=== PATIENT | female | born 1955 | race Caucasian/White ===

== ENCOUNTER → 2024-01-08 10:43 | Outpatient (REF) | payer MEDICARE, SELFPAY ==
--- NOTE | 2024-01-08 10:51 | CA_ITS ---
Transthoracic Echocardiogram Patient (Last, First, Middle): Brenna Ambriz, Gender: Female Date of : 1955 Age: 68 Procedure Date: 01/08/2024 Procedure Type: Transthoracic Echocardiogram Location: OP Height: 154.94 cm Weight: 74.84 kg BSA: 1.74 m2 Heart Rate: bpm BP: 114 / 68 mmHg Ski Base Trimmer: SUSIE Referring MD: Ramiro Coburn MD Shade Maker: Clint Hi MD Symptoms: HYPERTROPHIC CARDIOMYOPATHY Study Quality: Adequate ECG Rhythm: Sinus Conclusions: - 1. Hyperdynamic LV ejection fraction greater than 70% with severe focal asymmetric hypertrophy of the basal septum with mild obstructive physiology without any dynamic obstruction 2. Mild biatrial enlargement 3. Normal cardiac valvular Dopplers 4. Upper limits of normal RV systolic pressure with mildly elevated right atrial pressures 5. Mildly dilated ascending aorta and arch of the aorta 6. No gross pericardial effusion Findings Left Ventricle Normal left ventricular cavity size. There is mildly increased left ventricular wall thickness. The left ventricular systolic function is hyperdynamic. The visually estimated ejection fraction is >70%. There is no systolic anterior motion of the mitral valve. Spectral Doppler is indicative of an impaired relaxation filling pattern. E/E prime ratio is between 8 and 15 consistent with indeterminate filling pressures. There is severe septal asymmetric hypertrophy. Mild obstructive physiology noted without any dynamic obstruction Right Ventricle Mildly increased right ventricular cavity size. There is normal right ventricular systolic function. Atria The left atrium is mildly dilated. There is lipomatous hypertrophy of the interatrial septum. There is no evidence of interatrial shunt. The right atrium is mildly dilated. Aortic Valve Normal aortic valve structure and function. There is no aortic valve stenosis. There is no aortic valve regurgitation. Mitral Valve Normal mitral valve structure and function. There is trace mitral valve regurgitation. There is no mitral valve stenosis. Pulmonic Valve The pulmonic valve is likely normal. There is trace pulmonic valve regurgitation. Tricuspid Valve Normal tricuspid valve structure. There is mild tricuspid valve regurgitation. Mildly elevated right atrial pressure. There is no evidence of pulmonary hypertension. Great Vessels The pulmonary artery was not well visualized. There is mild dilatation of the ascending aorta measuring 4.30 cm and mild dilatation of the aortic arch measuring 3.80 cm. Venous The inferior vena cava is severely dilated and collapses greater than 50% with inspiration. Pericardium/Pleural There is no evidence of pericardial effusion. Prior Study Comparison No prior study available for comparison. Measurements 2D Linear Measurements IVSd: 1.21 0.6-0.9/0.6-1.0 cm LVIDd: 4.51 3.9-5.3/4.2-5.9 cm LVIDd Index: 2.59 2.4-3.2/2.2-3.1 cm/m2 LVIDs: 2.46 2.0-3.6 cm LVPWd: 1.37 0.7-1.1 cm LA Diam: 3.50 2.7-3.8/3.0-4.0 cm LAIDs Index: 2.01 1.5-2.3 cm/m2 LV Mass: 275.25 67-162/88-224 g LV Mass Index: 158.19 43-95/49-115 g/m2 LVOT Diam: 2.30 3.0+(-)1.3 cm 2D Systolic Function EF 4C: 75.30 >55% EF 2C: 72.90 >55% EF BiP: 72.80 >55% Mitral Valve MV Pk E: 0.92 MV PK A: 0.60 MV Decel Time: 227.00 E/A: 1.50 E'Lateral: 8.92 E'Medial: 5.77 E/E' Med: 16.00 E/E' Lat: 10.30 PHT: 66.00 MVA PHT: 3.33 Decel [place]: 4.06 MR Vol - PW Dopp: 14.64 MR VTI: 1.83 MR ERO: 8.00 MR Alias Forrest: 0.40 MR RAD: 0.40 Aortic Valve AoV Pk Forrest: 2.29 AoV Mn Forrest: 1.75 AoV VTI: 0.52 AoV Pk Grad: 21.00 Aov Mn Grad: 13.00 ZE Cont.VTI: 2.81 LVOT LVOT Pk Forrest: 1.77 LVOT Mn Forrest: 1.13 LVOT VTI: 0.35 LVOT Pk Grad: 13.00 LVOT Mn Grad: 6.00 LVOT Diam: 2.30 LVOT Area: 4.15 Diastolic Function MV Pk E: 0.92 MV Pk A: 0.60 E/A: 1.50 E'Medial: 5.77 E/E' Med: 16.00 E' Laterial: 8.92 E/E' Lat: 10.30 Right Ventricle TAPSE (mm): 25.60 TVS' Forrest: 16.60 Tricuspid Valve TR Pk Forrest: 2.58 TR Pk Grad: 27.00 RA Press: 8.00 RVSP: 35.00 Great Vessels Aorta Sinus of Valsalva: 3.55 2.0-3.[address] [place]: 2.97 1.7-3.4 cm Ao Asc: 4.30 2.1-3.4 cm Ao Arch: 3.80 Updated in Other Vendor System with Status of Final Clint Hi MD electronically signed on 01/08/2024 5:12:40 PM with status of Final
== END ==
LOC: HO.CARD 10:43
PROVIDERS: PCP Family Medicine; Visit Provider Internal Medicine Cardiovascular Disease
DX: I42.2 Other hypertrophic cardiomyopathy (principal); I71.21 Aneurysm of the ascending aorta, without rupture
CPT/HCPCS: 93306

== ENCOUNTER → 2024-01-08 10:51 | Outpatient (BNV) | payer MEDICARE, SELFPAY | PROVIDERS: PCP Family Medicine; Visit Provider Internal Medicine Cardiovascular Disease | DX: I42.2 Other hypertrophic cardiomyopathy (principal); I36.1 Nonrheumatic tricuspid (valve) insufficiency; R93.1 Abnormal findings on diagnostic imaging of heart and coronary circulation | CPT/HCPCS: 93306 ==

== ENCOUNTER 2024-01-16 14:44 | Outpatient (AMB) | payer MEDICARE, SELFPAY ==
--- NOTE | 2024-01-16 14:52 | MHC.PC.OV ---
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 - see comments Intake Note: establish care med refills Is last menstrual period known: No Post menopausal: Yes Patient : No Allergies amlodipine [From [facility]] Allergy (Severe, Verified 01/16/24 14:55) Palpitations amoxicillin Allergy (Intermediate, Verified 01/16/24 14:55) Rash Tobacco use date assessed: 01/16/24 Fall risk assessment: No Falls in past year Last assessed Fall Risk: 01/16/24 Dental Screening Dental Screen Date: 01/16/24 Did you have a dental visit in the last 12 months?: Yes Did you have a dental problem in the last 6 months where you did not have access to dental care?: No Was dental information given to patient?: Patient has dentist HPI 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 ?? Prior PCP:? Dr Parkinson Last office visit/CPE:?1 yr ago Acute issue(s):? AUB ?? PMHx:? Aortic aneurysm - Dr Coburn Instructor Creeler. HTN, HLD, GERD, Stage III CRF - Dr Mcmullen. Bipolar - Olvin Angelo Psych provider. 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 Thyroid nodules SurgHx:?Mole removal x 2. FHx:?Mom: Uterine CA in her 50s. Dad: Thyroid nodules/Goiter. Sister: Lung CA & Goiter. SocHx:? Nonsmoker. EtOH none. No drugs [facility] Social History (Updated 01/16/24 @ 14:59 by Yeimi Greer MA) Housing: Apartment Patient Tobacco Use Status: Never used Tobacco e-Cigarette/Vaping Use: Never Used Use of substances other than those prescribed or required for medical reasons: No Patient : No service: No Current occupational status: retired Cognitive needs: No Hearing needs: No Vision needs: Yes Questionnaire PHQ-9 Over the last 2 weeks, how often have you been bothered by any of the following problems? 1. Little interest or pleasure in doing things: not at all 2. Feeling down, depressed, or hopeless: not at all 3. Trouble falling or staying asleep, or sleeping too much: not at all 4. Feeling tired or having little energy: not at all 5. Poor appetite or overeating: not at all 6. Feeling bad about yourself - or that you are a failure or have let yourself or your family down: not at all 7. Trouble concentrating on things, such as reading the newspaper or watching television: not at all 8. Moving or speaking so slowly that other people could have noticed. Or the opposite - being so fidgety or restless that you have been moving around a lot more than usual: not at all 9. Thoughts that you would be better off or of hurting yourself in some way: not at all Total score: 0 Depression Screening Interpretation: Negative Depression Screening Done: Yes 76197 - PHQ-9 Billing: Yes Source: Developed by Drs. Michael Flores, Daily Muro, Mic Pond and colleagues, with an educational ary from [employer]. Thrive Questionnaire Date Thrive assessed: 01/16/24 I am a: Patient What is your living situation today?: I have a steady place to live Within the past 12 months, did the food you bought not last and you didn't have the money to get more?: Never true Within the past 12 months, did you worry whether your food would run out before you got money to buy more?: Never true Do you have trouble paying for medicines?: No Do you have trouble getting transportation to medical appointments?: No Do you have trouble paying your heating and electricity bill?: No Do you have trouble taking care of your child, family member or friend?: No Do you have trouble with day-to-day activities such as bathing, preparing meals, shopping, managing finances, etc.?: No Are you currently unemployed and looking for a job?: No Are you interested in more education?: No Currently or been in a relationship where the following occur: No concerns reported THRIVE Score: 0 AUDIT C Alcohol Use Questionnaire (AUDIT-C) 1. How often do you have a drink containing alcohol?: Never 3. How often do you have six or more drinks on one occasion?: Never Total Score: 0 Score Reviewed/Action Taken: Yes RODOLFO-7 AMB Questionnaire RODOLFO-7 Date RODOLFO - 7 assessed: 01/16/24 Feeling nervous, anxious, or on edge: 0 = Not at all Not being able to stop or control worryin = Not at all Worrying too much about different things: 0 = Not at all Trouble relaxin = Not at all Being so restless that it is hard to sit still: 0 = Not at all Becoming easily annoyed or irritable: 0 = Not at all Feeling afraid as if something awful might happen: 0 = Not at all Total RODOLFO-7 score (0-4 normal; 5-9 mild; 10-14 moderate; 15-21 severe): 0 Source: Developed by Drs. Michael Flores, Daily Muro, Mic Pond and colleagues, with an educational ary from [employer]. RODOLFO-7 Assessment Billing RODOLFO-7 Assessment Tool: RODOLFO-7 Assessment 70085 Review of Systems Const Denies chills, Denies fatigue, Denies fever(s), Denies headache(s) and Denies weakness ENT Denies dizziness and Denies headache(s) Card Denies chest pain, Denies lightheadedness, Denies dyspnea and Denies other (Palpitations) Resp Denies cough, Denies dyspnea, Denies wheezing and Denies other ( shortness of breath) Musc Denies numbness and Denies tingling Neuro Denies dizziness, Denies headache(s), Denies numbness, Denies tingling, Denies paresthesias and Denies weakness Psych Denies anxiety and Denies depression Endo Denies fatigue Aller/Immun Denies wheezing Physical exam (Primary Care) Vital Signs: Last Vital Signs Temp 98.4 F 01/16/24 15:00 Pulse 51 01/16/24 15:00 Resp 10 L 01/16/24 15:00 BP 100/60 01/16/24 15:00 Pulse Ox 98 01/16/24 15:00 Oxygen Delivery Method Room Air 01/16/24 15:00 BMI result Body Mass Index 32.7 Tobacco/Smoking Status: Tobacco use Status Tobacco use date assessed 01/16/24 01/16/24 14:58 Patient Tobacco Use Status Never used Tobacco 01/16/24 14:59 e-Cigarette/Vaping Use Never Used 01/16/24 15:03 PHQ-9: PHQ-9 Score PHQ-9: Total score 0 01/16/24 15:03 Depression Screening Interpretation: Negative Thrive Assessment: Date of Thrive Assessment Date Thrive assessed 01/16/24 01/16/24 15:03 Currently or been in a relationship where the following occur: No concerns reported Const General: no acute distress and well developed Nutritional Appearance: well nourished Orientation/consciousness: patient oriented x3 HENMT Head: Yes normocephalic and Yes atraumatic Eyes General: appearance normal, both eyes and all related structures Pupils: Equal, round and reactive pupils present EOM: EOMs intact bilaterally Resp Effort & Inspection: normal respiratory effort Auscultation: clear to auscultation bilaterally Cardio Rate: regular rate Rhythm: regular rhythm Heart sounds: S1 normal heart sound present, S2 normal heart sound present, no gallops, Murmur heart sound present (2/6 systolic murmur ) and no rubs Neuro General: patient oriented x3 and gait normal Cranial nerves: Yes Equal, round and reactive pupils present Psych Affect: normal affect Assessment and Plan Assessment & Plan (1) Hypertension: Code(s): I10 - Essential (primary) hypertension Plan: Blood?pressure?is?controlled.??Goal?is?less?than?130/80?for?patient?with?aortic?aneurysm Continue?current?medications (2) History of aortic aneurysm: Code(s): Z86.79 - Personal history of other diseases of the circulatory system Plan: History?of?mild?aortic?aneurysm?with?a?2/6?systolic?murmur?heard?over?aortic?and?mitral?regions. Continue?to?control?blood?pressure Follow-up?with?Cardiology,?; echocardiograms?every?year.??Will?request?'s?notes (3) Hyperlipidemia: Code(s): E78.5 - Hyperlipidemia, unspecified Plan: Patient?is?on?atorvastatin Check?lipid (4) GERD (gastroesophageal reflux disease): Code(s): K21.9 - Gastro-esophageal reflux disease without esophagitis Plan: Patient?is?on?omeprazole?which?controls?her?symptoms Continue?omeprazole (5) Abnormal echocardiogram: Code(s): R93.1 - Abnormal findings on diagnostic imaging of heart and coronary circulation Plan: Follow-up?with?Cardiology?as?recommended She?has?an?aortic?aneurysm?and?is?followed?annually?by?Cardiology?with?an?echocardiogram. (6) CKD (chronic kidney disease): Code(s): N18.9 - Chronic kidney disease, unspecified Plan: Chronic?renal?failure.??Patient?says?she?was?on?lithium?for?many?years?and?cause?stage?III?CRF. Followed?by??Benedict Will?request?note Check?labs (7) Bipolar disorder: Code(s): F31.9 - Bipolar disorder, unspecified Plan: History?of?lithium?but?no?longer?on?this?due?to?chronic?renal?failure She?is?now?on?risperidone Stable Follow-up?with?psych?med?provider?as?recommended (8) Abnormal uterine bleeding (AUB): Code(s): N93.9 - Abnormal uterine and vaginal bleeding, unspecified Plan: Patient?recounts?abnormal?uterine?bleeding She?says?this?was?worked?up?and?was?being?followed?by gynecology, Dr Ferrari?at?[facility]?but?they?no?longer?take?her?insurance. Referred?to [facility]?supervising chef (9) Chronic renal failure: Code(s): N18.9 - Chronic kidney disease, unspecified Plan: Followed?by?Dr Mcmullen. Stage?III?renal?failure?after?chronic?lithium?use?for?bipolar?disorder.??No?longer?on?lithium. 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
[2024-01-16 15:00] VITALS: BP 100/60; PULSE 51; RESP 10; TEMP 36.9; O2SAT 98; BMI 32.7
== END 2024-01-16 15:40 | disposition home or self-care (01) ==
PROVIDERS: PCP Family Medicine; Visit Provider Family Medicine
DX: I12.9 Hypertensive chronic kidney disease with stage 1 through stage 4 chronic kidney disease, or unspecified chronic kidney disease (principal); Z86.79 Personal history of other diseases of the circulatory system; F31.9 Bipolar disorder, unspecified; E78.5 Hyperlipidemia, unspecified; K21.9 Gastro-esophageal reflux disease without esophagitis; R93.1 Abnormal findings on diagnostic imaging of heart and coronary circulation; N18.9 Chronic kidney disease, unspecified; N93.9 Abnormal uterine and vaginal bleeding, unspecified

== ENCOUNTER → 2024-01-16 14:44 | Outpatient (BNVA) | payer MEDICARE, SELFPAY | PROVIDERS: PCP Family Medicine; Visit Provider Family Medicine | DX: I12.9 Hypertensive chronic kidney disease with stage 1 through stage 4 chronic kidney disease, or unspecified chronic kidney disease (principal); N18.9 Chronic kidney disease, unspecified; E78.5 Hyperlipidemia, unspecified; K21.9 Gastro-esophageal reflux disease without esophagitis; R93.1 Abnormal findings on diagnostic imaging of heart and coronary circulation; F31.9 Bipolar disorder, unspecified; N93.9 Abnormal uterine and vaginal bleeding, unspecified | CPT/HCPCS: 96127; 99202 ==

== ENCOUNTER 2024-02-01 07:34 | Outpatient (REF) | payer MEDICARE, SELFPAY ==
[2024-02-05 13:49] LABS: HPV mRNA E6/E7 Not Detected (Not Detected)
== END 2024-02-01 07:35 | disposition home or self-care (01) ==
LOC: HO.LNP 07:34
PROVIDERS: PCP Family Medicine; Visit Provider Obstetrics & Gynecology
DX: N95.0 Postmenopausal bleeding (principal)
CPT/HCPCS: 87624; 88175; 99202

== ENCOUNTER 2024-02-01 07:34 | Outpatient (AMB) | payer MEDICARE, SELFPAY ==
[2024-02-01 07:39] VITALS: BMI 32.5
--- NOTE | 2024-02-01 07:39 | A.OFFVIS_ITS ---
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 [facility] Social History Housing: Apartment Patient Tobacco Use Status: Never used Tobacco e-Cigarette/Vaping Use: Never Used service: No Current occupational status: retired Cognitive needs: No Hearing needs: No Vision needs: Yes Review of Systems Const All systems reviewed & are unremarkable except as noted in HPI and below Physical Exam Vital Signs: BMI result Body Mass Index 32.5 General: Yes no CVA tenderness External Female Exam: normal external appearance and normal appearance of the urethra Speculum Exam - Vagina: normal appearance of the vagina, normal palpation, no lesions and no masses Speculum Exam - Cervix: normal appearance of the cervix, normal palpation, no lesions, no masses and nontender Bimanual exam- vagina & uterus: normal bimanual exam, normal palpation, uterine size normal, normal palpation, uterine shape normal, No Cervical tenderness present and non-tender Bimanual Exam- Adnexa, other: normal adnexae Back/Spine/Pelvis Back: no CVA tenderness Assessment & Plan Assessment & Plan (1) Postmenopausal bleeding: Comment: Recurrent Code(s): N95.0 - Postmenopausal bleeding Category: Medical Plan: Discussed with the patient the differential diagnosis of post menopausal bleeding with normal pelvic exam including but not limited to, endometrial hyperplasia, cancer, polyps and other causes; co testing done, recommended ultrasound; Instructed the patient to schedule an ultrasound with a follow-up appointment/possible EMB or preop for hysteroscopy D&C polypectomy given the recurrent nature of her postmenopausal bleeding in 1-2 weeks. All questions answered, the patient verbalized understanding and agreed with the plan. This note was generated with a voice recognition program. Some errors may have been overlooked during the review of this note. Sometimes these errors may affect the content or meaning of a given sentence. Orders: Orders US pelvic and transvaginal Today N93.9 - Abnormal uterine and vaginal bleeding, unspecified Coding Level of Care Code New Pt Level 3 (98159) Diagnoses Postmenopausal bleeding N95.0
== END 2024-02-01 08:40 | disposition home or self-care (01) ==
PROVIDERS: PCP Family Medicine; Visit Provider Obstetrics & Gynecology
DX: N95.0 Postmenopausal bleeding (principal)
CPT/HCPCS: 99203

== ENCOUNTER 2024-02-02 10:52 | Outpatient (REF) | payer MEDICARE, SELFPAY ==
--- NOTE | ~2024-02-02 | US_ITS ---
EXAMINATION:US PELVIS TRANSABDOMINAL AND TRANSVAGINAL CLINICAL INFORMATION: N93.9 - Abnormal uterine and vaginal bleeding, unspecified COMPARISON: No priors available. LMP: Postmenopausal FINDINGS: UTERUS: The uterus is anteverted. Size: 6.4 x 1.6 x 4.3 cm. Uterine mass: There is no uterine mass. There are echogenic foci likely intramural calcifications measuring up to 3 mm. Questionable significance. Cervix: Grossly unremarkable. Endometrium: No ultrasound evidence of endometrial lesion. endometrial thickness measures 0.3 cm endometrial echogenic foci possibly calcification measuring up to 4 mm. ADNEXA: Normal Right ovary: Normal in size. Left ovary: Normal in size. Doppler exam: Normal Doppler flow identified in both ovaries. FREE FLUID: Trace amount of free fluid. OTHER FINDINGS: None US/US pelvic and transvaginal IMPRESSION: * There are echogenic foci within the endometrium probably calcifications, nonspecific. * The endometrial echogenic 4 mm structure could be calcification versus polyp. 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 * Ovaries unremarkable. (Referring physician staff is being called, by physician staff assistance, to be alerted of the above critical findings and recommendations.) 02/02/2024 3:23 PM CDT * Electronically signed by: Rafia Pedroza MD 02/02/2024 04:23 PM EDT
== END 2024-02-02 10:53 | disposition home or self-care (01) ==
LOC: HO.US 10:52
PROVIDERS: PCP Family Medicine; Visit Provider Obstetrics & Gynecology
DX: N93.9 Abnormal uterine and vaginal bleeding, unspecified (principal)
CPT/HCPCS: 76830; 76856

== ENCOUNTER 2024-02-07 13:21 | Outpatient (AMB) | payer MEDICARE, SELFPAY ==
[2024-02-07 13:54] VITALS: BMI 32.5
--- NOTE | 2024-02-07 13:54 | A.OFFVIS_ITS ---
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] Allergy (Severe, Verified 02/07/24 13:54) Palpitations amoxicillin Allergy (Intermediate, Verified 02/07/24 13:54) Rash Is last menstrual period known: Yes Last menstrual period: 02/20/20 Post menopausal: Yes Patient : No Do you need a note to return to daycare/school/sports/work: Yes (for surgery on monday) HPI Comments Details: Presenting for follow-up. Pelvic ultrasound showed the following: IMPRESSION: * There are echogenic foci within the endometrium probably calcifications, nonspecific. * The endometrial echogenic 4 mm structure could be calcification versus polyp. 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 * Ovaries unremarkable. Co testing in 02/14 was negative [facility] Social History Housing: Apartment Patient Tobacco Use Status: Never used Tobacco e-Cigarette/Vaping Use: Never Used service: No Current occupational status: retired Cognitive needs: No Hearing needs: No Vision needs: Yes Female Reproductive History Menstrual Date of last menstrual period: 02/20/20 Total pregnancies: 2 Full term: 2 Review of Systems Card Reports as per HPI and Reports no additional complaints Resp Reports as per HPI and Reports no additional complaints GI Reports as per HPI and Reports no additional complaints Reports as per HPI Physical Exam Vital Signs: BMI result Body Mass Index 32.5 Const General: cooperative, healthy appearing and comfortable Resp Effort & Inspection: normal respiratory effort Auscultation: clear to auscultation bilaterally Percussion: percussion normal Cardio Palpation: normal PMI Rate: regular rate Rhythm: regular rhythm Heart sounds: no murmurs and no rubs Peripheral pulses: Peripheral pulses 2+ throughout GI Inspection: Yes normal to inspection Palpation (GI): Soft to palpation, nontender, no guarding, not rigid and No hepatosplenomegaly present Percussion: Yes normal to percussion Auscultation: normal bowel sounds Rectal Exam - Female: deferred Assessment & Plan Assessment & Plan (1) Postmenopausal bleeding: Comment: Recurrent Abnormal endometrium by ultrasound Code(s): N95.0 - Postmenopausal bleeding Category: Medical Plan: Discussed with the patient the results the ultrasound showing abnormal endometrium-calcification possible polyp. Recommended hysteroscopy D&C possible polypectomy/myomectomy. Discussed with the patient the procedure , all benefits and risks including but not limited to inability to complete the procedure , insufficient endometrial tissue for a complete evaluation of the endometrial cavity , bleeding, infection, possible need for blood transfusion with all its risk ( HIV,syphilis, Hepatitis, anaphylaxis shock, others..), injury to bladder, rectum, possible need for laparoscopy/laparotomy or hysterectomy. The patient verbalized understanding and signed the consent. Instructions given the patient to stay NPO after midnight the day prior to the procedure and to take only the specific medication (s) discussed the morning of the surgical procedure and to schedule a 2 week postoperative appointment Coding Level of Care Code Est Pt Level 3 (72494) Diagnoses Postmenopausal bleeding N95.0
== END 2024-02-07 14:17 | disposition home or self-care (01) ==
LOC: HO.HWS 13:21
PROVIDERS: PCP Family Medicine; Visit Provider Obstetrics & Gynecology
DX: N95.0 Postmenopausal bleeding (principal)
CPT/HCPCS: 99213

== ENCOUNTER → 2024-02-07 13:21 | Outpatient (BNVA) | payer MEDICARE, SELFPAY | PROVIDERS: PCP Family Medicine; Visit Provider Obstetrics & Gynecology | DX: Z01.818 Encounter for other preprocedural examination (principal); N95.0 Postmenopausal bleeding; Z71.2 Person consulting for explanation of examination or test findings | CPT/HCPCS: 99212 ==

== ENCOUNTER 2024-03-01 08:55 | Day surgery (SDC) | payer MEDICARE, SELFPAY ==
[2024-02-28 15:08] VITALS: BMI 32.5
[2024-02-28 15:48] VITALS: BMI 32.1
--- NOTE | 2024-03-01 10:11 | MHC.SHP ---
Pre-Procedural Eval Section A - 24 Hr Update-Section A only Date of Service: 03/01/24 The patient is an INPATIENT: No Changes since office visit: No Cold of Flu in the past 2 weeks, No New Medical Problems, No Changes in Medication and No Patient answered all questions The patient has been examined within 24 hours of the surgical procedure. The History & Physical has been completed within 30 days and I have reviewed it.: Yes Section B - Complete if H&P > 30 days Chief Complaint: Postmenopausal bleeding Allergies: Allergies Allergy/AdvReac Type Severity Reaction Status Date / Time amlodipine [From [facility]] Allergy Severe Palpitation Verified 03/01/24 10:08 s amoxicillin Allergy Severe Rash Verified 03/01/24 10:08 Plan Diagnosis/Plan: Unchanged I have reviewed the history and physical and performed a pertinent physical examination on my patient. No changes have occurred unless specified. Time Spent With Patient Time: Total time managing care of this patient today ____ minutes.
[2024-03-01 10:25] VITALS: BP 135/69; PULSE 54; RESP 12; TEMP 36.7; O2SAT 97
[2024-03-01] MEDS: Lactated Ringers 1,000 ML 100 ML IVCONT (10:35)
--- NOTE | 2024-03-01 11:00 | P.CONAN_ITS ---
Documented by User: Sonia Dinero NP 02/28/24 14:22 HPI - Anesthesia Eval Consult details Narrative: 68yo F for D&C Hysteroscopy,possible myomectomy,possible polypectomy, HOCM - follows Dr Coburn. William at 01/2024 office visit Case reviewed with Dr King [facility] Active Problems Active Problems: All Active Problems Postmenopausal bleeding (Acute) Chronic renal failure (Acute) Laboratory exam ordered as part of routine general medical examination (Acute) Abnormal uterine bleeding (AUB) (Acute) Bipolar disorder (Acute) CKD (chronic kidney disease) (Acute) Abnormal echocardiogram (Acute) History of aortic aneurysm (Acute) GERD (gastroesophageal reflux disease) (Acute) Hyperlipidemia (Acute) Hypertension (Acute) Past Medical History Medical History Anxiety Hiatal hernia TREE (obstructive sleep apnea) HOCM (hypertrophic obstructive cardiomyopathy) Bipolar disorder CKD (chronic kidney disease) History of aortic aneurysm GERD (gastroesophageal reflux disease) Hyperlipidemia Hypertension Surgical History Surgical History Hx of colonoscopy History of dental surgery Hx of melanoma excision (~1970) Social History Social History Housing: Apartment Are you a primary geriatric care manager to a significant other at home: No Do you presently have visiting nurse or other home services: No Comment: aware of trip hazard Patient Tobacco Use Status: Never used Tobacco e-Cigarette/Vaping Use: Never Used Use of substances other than those prescribed or required for medical reasons: No Have you been hit, kicked, punched, or otherwise hurt by someone within the past year? If so, by whom?: No Are you DNR?: No Advance Directives: No (will bring dos) Advance Directives Information Provided: Yes Advance Directives on File: No Recently lost weight without trying: No Nutrition Risks: No Nutritional Risk Poor oral hygiene: No service: No Current occupational status: retired Cognitive needs: No Hearing needs: No Vision needs: Yes Meds Allergies Allergy/AdvReac Type Severity Reaction Status Date / Time amlodipine [From Norvasc] Allergy Severe Palpitation Verified 03/01/24 10:08 s amoxicillin Allergy Severe Rash Verified 03/01/24 10:08 Home Medications ?Medication ?Instructions ?Recorded ?Confirmed ?Last Taken ?Type amiloride 5 mg tablet 5 mg PO BID 01/16/24 02/28/24 Unknown History atorvastatin 40 mg tablet 40 mg PO DAILY 01/16/24 02/28/24 Unknown History lisinopril 10 mg tablet 10 mg PO DAILY 01/16/24 02/28/24 Unknown History metoprolol succinate 25 mg 25 mg PO DAILY 01/16/24 03/01/24 03/01/24 History tablet,extended release 24 hr risperidone 3 mg tablet 3 mg PO BID 01/16/24 02/28/24 03/01/24 History aspirin 81 mg tablet,delayed 81 mg PO DAILY 02/28/24 02/28/24 Unknown History release calcium carbonate (Calcium 600) 600 mg PO DAILY 02/28/24 02/28/24 Unknown History cholecalciferol (vitamin D3) 10 20 mcg PO DAILY 02/28/24 02/28/24 Unknown History mcg (400 unit) tablet (Vitamin D3) [id number] 8 mg-folic 400 1 tab PO DAILY 02/28/24 02/28/24 Unknown History mcg-K 50 mcg-lutein 300 mcg tablet (Centrum Silver Women) Exam Narrative Narrative: EKG 01/2024 SB @ 58 with PACs No change from previous ECHO 12/2023 Conclusions: - 1. Hyperdynamic LV ejection fraction greater than 70% with severe focal asymmetric hypertrophy of the basal septum with mild obstructive physiology without any dynamic obstruction 2. Mild biatrial enlargement 3. Normal cardiac valvular Dopplers 4. Upper limits of normal RV systolic pressure with mildly elevated right atrial pressures 5. Mildly dilated ascending aorta and arch of the aorta 6. No gross pericardial effusion Assessment and Plan Assessment Anesthesia Assessment: Chart Reviewed Documented by User: Shanel Morales DO 03/01/24 11:01 [facility] Past Medical History Medical History Anxiety Hiatal hernia TREE (obstructive sleep apnea) HOCM (hypertrophic obstructive cardiomyopathy) Bipolar disorder CKD (chronic kidney disease) History of aortic aneurysm GERD (gastroesophageal reflux disease) Hyperlipidemia Hypertension Family History Family history of problems with anesthesia: No Surgical History Surgical History Hx of colonoscopy History of dental surgery Hx of melanoma excision (~1970) History of Problems with Anesthesia: No Social History Social History Housing: Apartment Are you a primary geriatric care manager to a significant other at home: No Do you presently have visiting nurse or other home services: No Comment: aware of trip hazard Patient Tobacco Use Status: Never used Tobacco e-Cigarette/Vaping Use: Never Used Use of substances other than those prescribed or required for medical reasons: No Have you been hit, kicked, punched, or otherwise hurt by someone within the past year? If so, by whom?: No Are you DNR?: No Advance Directives: No (will bring dos) Advance Directives Information Provided: Yes Advance Directives on File: No Recently lost weight without trying: No Nutrition Risks: No Nutritional Risk Poor oral hygiene: No service: No Current occupational status: retired Cognitive needs: No Hearing needs: No Vision needs: Yes Meds Allergies Allergy/AdvReac Type Severity Reaction Status Date / Time amlodipine [From [facility]] Allergy Severe Palpitation Verified 03/01/24 10:08 s amoxicillin Allergy Severe Rash Verified 03/01/24 10:08 Home Medications ?Medication ?Instructions ?Recorded ?Confirmed ?Last Taken ?Type amiloride 5 mg tablet 5 mg PO BID 01/16/24 02/28/24 Unknown History atorvastatin 40 mg tablet 40 mg PO DAILY 01/16/24 02/28/24 Unknown History lisinopril 10 mg tablet 10 mg PO DAILY 01/16/24 02/28/24 Unknown History metoprolol succinate 25 mg 25 mg PO DAILY 01/16/24 03/01/24 03/01/24 History tablet,extended release 24 hr risperidone 3 mg tablet 3 mg PO BID 01/16/24 02/28/24 03/01/24 History aspirin 81 mg tablet,delayed 81 mg PO DAILY 02/28/24 02/28/24 Unknown History release calcium carbonate (Calcium 600) 600 mg PO DAILY 02/28/24 02/28/24 Unknown History cholecalciferol (vitamin D3) 10 20 mcg PO DAILY 02/28/24 02/28/24 Unknown History mcg (400 unit) tablet (Vitamin D3) gastyhug-mgvz-qpra 8 mg-folic 400 1 tab PO DAILY 02/28/24 02/28/24 Unknown History mcg-K 50 mcg-lutein 300 mcg tablet (Centrum Silver Women) Exam Exam Date and Time: 03/01/24 1059 Height,Weight and Vital Signs: Height 5 ft 1 in Weight 77.111 kg Vital Signs Temperature 98.0 F 03/01/24 10:25 Pulse Rate 54 03/01/24 10:25 Respiratory Rate 12 03/01/24 10:25 Blood Pressure 135/69 03/01/24 10:25 Pulse Oximetry 97 03/01/24 10:25 Oxygen Delivery Method Room Air 03/01/24 10:25 Temperature 98.0 F 03/01/24 10:25 Pulse Rate 54 03/01/24 10:25 Respiratory Rate 12 03/01/24 10:25 Blood Pressure 135/69 03/01/24 10:25 Pulse Oximetry 97 03/01/24 10:25 Oxygen Delivery Method Room Air 03/01/24 10:25 Airway Mallampati Class: II TM Dist: >3cm Neck ROM: Full Loose/Missing/Broken Teeth: No (patient denies any loose or broken teeth) Heart: S1S2 Lungs: CTAB Assessment and Plan Assessment Anesthesia Assessment: Anesthesia Plan Discussed and Chart Reviewed Final Anesthetic Review Family History of Problems with Anesthesia: No History of Problems with Anesthesia: No NPO: Yes ASA Class: III Final Preanesthetic Review: No Changes in Pt Med Stat, Meds/Allgs Chart Reviewed, Consent Obtained/Reviewed and Anes Risks/Benef Reviewed Patient Risk: Intermediate Procedure Risk: Low Anesthetic Plan Anesthetic Plan: GA and Agree w/ Assess. and Plan Disposition: Standard PACU
[2024-03-01 12:23] VITALS: BP 112/63; PULSE 60; RESP 18; TEMP 36.2; O2SAT 97
[2024-03-01 12:28] VITALS: BP 119/56; PULSE 66; RESP 17; O2SAT 97
--- NOTE | 2024-03-01 12:29 | P.BOP_ITS ---
Brief Operative Note Date of Service: 03/01/24 Pre-op diagnosis: Recurrent postmenopausal bleed Post-op diagnosis: same (Normal endometrial cavity) Procedure: Hysteroscopy D&C Surgeon: Joseph Barrera MD Anesthesia: GLMA Was an Conveyor Attendant used for this Procedure?: No Estimated blood loss (mL): 0 Pathology: other (Endometrial Scrapping.) Condition: stable Disposition: PACU
--- NOTE | 2024-03-01 12:29 | W.PM.OPN ---
Operative Note Operative Note Date of Service: 03/01/24 Narrative: Preop Diagnosis: Recurrent Post Menopausal bleeding Operation: Diagnostic Hysteroscopy, Dilataion & Curettage Post Op Diagnosis: Normal endometrial cavity QBL: Minimal Anesthesia: GLMA Surgeon: Joseph Barrera MD Salesperson Children'S Shoes: None Complication: None Pathology: Endometrial Scrapings Procedure: The patient was put in the dorsal lithotomy position, scrubbed, and draped in the usual manner. A sterile speculum was inserted in the patient's vagina. The anterior lip of the cervix was grasped with a single tooth tenaculum. The cervix was dilated up to 5 mm, then the scope was inserted in the patient's uterus. Inspection revealed Normal endometrial cavity. The Myosure Reach device was used; the scope was removed from the endometrial cavity , sharp curettings was carried on with minimal to moderate amount of tissues retrieved. At the end of the procedure, all instruments were taken out of the patient uterine and vaginal cavity. The single tooth tenaculum was removed and homeostasis was assured using pressure,. The patient tolerated the procedure well and was transferred to the PACU in a stable condition.
[2024-03-01 12:33] VITALS: BP 128/57; PULSE 59; RESP 17; O2SAT 99
[2024-03-01 12:38] VITALS: BP 135/69; PULSE 58; RESP 17; O2SAT 99
[2024-03-01 12:51] VITALS: BP 123/63; PULSE 54; RESP 17; TEMP 36.9; O2SAT 98
== END 2024-03-01 13:20 | disposition home or self-care (01) ==
PROVIDERS: PCP Family Medicine; Visit Provider Obstetrics & Gynecology
PROC: 0UDB8ZZ Extraction of Endometrium, Via Natural or Artificial Opening Endoscopic (ICD-10-PCS; CPT 58558; principal; 2024-03-01 11:30)
DX: N95.0 Postmenopausal bleeding (principal); I12.9 Hypertensive chronic kidney disease with stage 1 through stage 4 chronic kidney disease, or unspecified chronic kidney disease; N18.9 Chronic kidney disease, unspecified; I42.1 Obstructive hypertrophic cardiomyopathy; E78.5 Hyperlipidemia, unspecified; G47.33 Obstructive sleep apnea (adult) (pediatric); F31.9 Bipolar disorder, unspecified; Z79.82 Long term (current) use of aspirin; Z79.899 Other long term (current) drug therapy; Z88.1 Allergy status to other antibiotic agents; Z88.8 Allergy status to other drugs, medicaments and biological substances
CPT/HCPCS: 58558; 88305; J0461; J1885; J2003; J2405; J2704; J3010

== ENCOUNTER → 2024-03-01 08:55 | Outpatient (BNV) | payer MEDICARE, SELFPAY | PROVIDERS: PCP Family Medicine; Visit Provider Obstetrics & Gynecology | DX: N95.0 Postmenopausal bleeding (principal) | CPT/HCPCS: 58558 ==

== ENCOUNTER 2024-03-14 09:04 | Outpatient (AMB) | payer MEDICARE, SELFPAY ==
--- NOTE | 2024-03-14 09:08 | A.OFFVIS_ITS ---
Vital Signs 03/14/24 09:11 Height 5 ft 1 in Weight 171 lb BMI 32.3 BP 130/70 Intake Visit Reasons: post op Certified Executive Chef: Certified Executive Chef Present (Gabby) Accompanied by: Self / Same As Patient Allergies amlodipine [From Norvasc] Allergy (Severe, Verified 03/14/24 09:10) Palpitations amoxicillin Allergy (Severe, Verified 03/14/24 09:10) Rash HPI Comments Details: The patient is presenting post hysteroscopy D&C no complaints minimal vaginal bleeding no feverishness chills or abdominal pain. The pathology showed the following: Endometrium, curettage: Scant benign atrophic endometrium and scant benign endocervical glandular epithelium; no atypia or carcinoma PFSH Medical History Anxiety Hiatal hernia TREE (obstructive sleep apnea) HOCM (hypertrophic obstructive cardiomyopathy) Bipolar disorder CKD (chronic kidney disease) History of aortic aneurysm GERD (gastroesophageal reflux disease) Hyperlipidemia Hypertension Surgical History Hx of colonoscopy History of dental surgery Hx of melanoma excision (~1970) Social History Housing: Apartment Are you a primary child care centre manager to a significant other at home: No Do you presently have visiting nurse or other home services: No Comment: aware of trip hazard Patient Tobacco Use Status: Never used Tobacco e-Cigarette/Vaping Use: Never Used service: No Current occupational status: retired Cognitive needs: No Hearing needs: No Vision needs: Yes Review of Systems Const All systems reviewed & are unremarkable except as noted in HPI and below Reports as per HPI and Reports no additional complaints GI Reports no additional complaints Reports no additional complaints Physical Exam Vital Signs: Last Vital Signs BP 130/70 03/14/24 09:11 Assessment & Plan Assessment & Plan (1) Postmenopausal bleeding: Code(s): N95.0 - Postmenopausal bleeding Category: Medical Plan: Discussed with the patient the results of the endometrial . Discussed with the patient the sensitivity, specificity, positive and negative predictive value, of endometrial biopsy in detecting endometrial pathology including but not limited to endometrial hyperplasia, cancer and other pathology; instructed the patient to call in case vaginal bleeding bleeding recurs, the next step will be to proceed with further endometrial sampling evaluation to rule out endometrial pathology. All questions answered and the patient verbalized understanding and agreed with the plan. Coding Level of Care Code Est Pt Level 3 (51044) Diagnoses Postmenopausal bleeding N95.0
[2024-03-14 09:11] VITALS: BP 130/70; BMI 32.3
== END 2024-03-14 09:35 | disposition home or self-care (01) ==
LOC: HO.HWS 09:04
PROVIDERS: PCP Family Medicine; Visit Provider Obstetrics & Gynecology
DX: N95.0 Postmenopausal bleeding (principal)
CPT/HCPCS: 99213

== ENCOUNTER → 2024-03-14 09:04 | Outpatient (BNVA) | payer MEDICARE, SELFPAY | PROVIDERS: PCP Family Medicine; Visit Provider Obstetrics & Gynecology | DX: N95.0 Postmenopausal bleeding (principal) | CPT/HCPCS: 99212 ==

== ENCOUNTER 2024-04-18 09:33 | Outpatient (REF) | payer MEDICARE, SELFPAY | END 2024-04-18 09:34 | disposition home or self-care (01) | LOC: HO.MAMMO 09:33 | PROVIDERS: PCP Family Medicine; Visit Provider Family Medicine | DX: Z12.31 Encounter for screening mammogram for malignant neoplasm of breast (principal) | CPT/HCPCS: 77063; 77067 ==

== ENCOUNTER → 2024-04-18 10:15 | Outpatient (BNV) | payer MEDICARE, SELFPAY | PROVIDERS: PCP Family Medicine; Visit Provider Internal Medicine | DX: Z12.31 Encounter for screening mammogram for malignant neoplasm of breast (principal) | CPT/HCPCS: 77063; 77067 ==

== ENCOUNTER 2024-09-02 10:17 | Outpatient (REF) | payer MEDICARE, SELFPAY ==
--- OUTSIDE RECORDS SUMMARY | 2024-09-02 10:46 | XMS_ITS | Clinical Summary ---
Author Organization [facility], Address [address] [address] [place] [address] Phone Care Team Providers Care Grain Wafer Machine Operator Name Role Phone Stephen Rowley MD Primary Care Provider [phone] Allergies Active Allergy Reactions Criticality Noted Date Comments Amlodipine 07/10/2018 Pt reports fast heart rate Amoxicillin Other (see comments) 09/10/2010 Medications omeprazole (PriLOSEC) [address] capsule Take 40 mg by mouth 09/09/2016 Active Aspirin Buf,CaCarb-MgCar b-MgO, 81 MG tablet Take 81 mg by mouth Active atorvastatin (LIPITOR) 40 MG tablet Take 1 tablet by mouth 1 (one) time each day 12/11/2017 Active lisinopril 10 MG tablet TAKE 1 TABLET BY MOUTH 1 TIME EACH DAY. 90 tablet 3 10/17/2023 Active metoprolol succinate XL (TOPROL XL) 25 MG 24 hr tablet TAKE 1 TABLET (25 MG TOTAL) BY MOUTH DAILY DO NOT CRUSH OR CHEW 90 tablet 3 01/11/2024 Active aMILoride (MIDAMOR) 5 MG tabletIndication s:Acute kidney injury due to hypovolemia (HCC),Stage 3a chronic kidney disease (HCC),Toxic nephropathy,Hype rtensive disorder Take 2 tablets (10 mg total) by mouth 1 (one) time each day 180 tablet 3 06/07/2024 06/07/19 26 Active Active Problems Problem Noted Date Diagnosed Date Acute kidney injury due to hypovolemia 3 Stage 3a chronic kidney disease 01/26/2022 Thoracic aortic aneurysm without rupture 022 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 Hypertensive heart and chron ic kidney disease without heart failure, with stage 1 through stage 4 chronic kidney disease, or unspecified chronic kidney disease 01/24/2020 Hyperlipidemia 01/23/2020 Hypernatremia 01/23/2020 Hyperosmolality and or hypernatremia 01/23/2020 Microscopic hematuria 10/14/2016 Hypertensive disorder 04/09/2015 Resolved Problems Problem Noted Date Diagnosed Date Resolved Date Chronic kidney disease due to hypertension 01/23/2020 06/07/2023 Overview (01/23/2020): dr Tim, [place] nephropathy 01/23/2020 12/06/19 24 Encounters Date Type Department Care Team Description 06/07/2024 2:00 PM EST Office Visit [facility], [address] [place] [id number] Lavelle Mcmullen DO Acute kidney injury due to hypovolemia (HCC) (Primary Dx); Stage 3a chronic kidney disease (HCC); Toxic nephropathy; Hypertensive disorder from Last 3 Months Immunizations Immunization Administration Dates Next Due Tdap 09/13/2021,10/25/2007 Family History Relation Status Comments Father Mother Social History Tobacco Use Types Packs/Day Years Used Date Smoking Tobacco: Never Alcohol Use Standard Drinks/Week Comments No 0 (1 standard drink = 0.6 oz pur e alcohol) Comments Unknown Sex and Gender Information Value Date Recorded Sex Assigned at Not on file Legal Sex Female 4:34 PM EST Gender Identity Not on file Sexual Orientation Not on file Last Filed Vital Signs Vital Sign Reading Time Taken Comments Blood Pressure 108/68 06/07/2024 2:15 PM EST Pulse 74 06/07/2024 2:15 PM EST Temperature - - Respiratory Rate - - Oxygen Saturation - - Inhaled Oxygen Concentration - - Weight 57.2 kg (126 lb) 02/07/2019 12:00 PM EDT Height 154.9 cm (5' 1 ) 02/07/2019 12:00 PM EDT Body Mass Index 23.81 02/07/2019 12:00 PM EDT Plan of Treatment Upcoming Encounters Date Type Department Care Team (Late st Contact Info) Description 12/05/2024 2:30 PM EDT Office Visit [facility], [address] [place] [phone] Lavelle Mcmullen DO [address] [place] [address] Health Maintenance Due Date Last Done Comments Breast Cancer Screening 1955 Pneumococcal Vaccine: 50+ Ye ars (1 of 2 - PCV) 1972 Colorectal Cancer Screening: Annual FOBT 2002 Colorectal Cancer Screening: Colonoscopy 2002 Colorectal Cancer Screening: Sigmoidoscopy 2002 Influenza Vaccine (Season Ended) 2024 Hepatitis B Vaccine Aged Out No longe r eligible based on patient's age to complete this topic Insurance [facility] Medicare Care Teams Grain Wafer Machine Operator Relationship Specialty Start Date End Date Stephen Rowley MD PCP - General Internal Medicine 09/26/22
--- OUTSIDE RECORDS SUMMARY | 2024-09-02 10:46 | XMS_ITS | Encounter Summary ---
Author Organization [facility] Address [address] [place] [address] Phone Care Team Providers Care Title Abstractor Name Role Phone Stephen Rowley MD Primary Care Provider [phone] Encounter Details Date Type Department Care Team (Late Contact Info) Description 01/11/2023 Documentation Only [facility] [address] [place] [address] Lavelle Mcmullen DO [address] [facility] [address] [place] [address] Social History Tobacco Use Types Packs/Day Years Used Date Smoking Tobacco: Never Alcohol Use Standard Drinks/Week Comments No 0 (1 standard drink = 0.6 oz pur e alcohol) Comments Unknown Sex and Gender Information Value Date Recorded Sex Assigned at Not on file Legal Sex Female 4:34 PM EST Gender Identity Not on file Sexual Orientation Not on file documented as of this encounter Plan of Treatment Upcoming Encounters Date Type Department Care Team (Late Contact Info) Description 12/05/2024 2:30 PM EDT Office Visit [facility] [address] [place] [address] Lavelle Mcmullen DO [address] [facility] [address] [place] [address] documented as of this encounter Visit Diagnoses Not on filedocumented in this encounter Care Teams Title Abstractor Relationship Specialty Start Date End Date Stephen Rowley MD PCP - General Internal Medicine 09/26/22 documented as of this encounter
--- OUTSIDE RECORDS SUMMARY | 2024-09-02 10:46 | XMS_ITS | Encounter Summary ---
Author Organization [facility] Address [address] [place] [address] Phone Care Team Providers Care Molasses Feed Mixer Name Role Phone Stephen Rowley MD Primary Care Provider [phone] Encounter Details Date Type Department Care Team (Late Contact Info) Description 12/06/2023 Documentation Only [facility] [address] [place] [address] Lavelle Mcmullen DO [address] [place] [address] Social History Tobacco Use Types [...] Visit [facility] [address] [place] [address] Lavelle Mcmullen DO [address] [place] [address] documented as of this encounter Visit Diagnoses Not on filedocumented in this encounter Care Teams Molasses Feed Mixer Relationship Specialty Start Date End Date Stephen Rowley MD PCP - General Internal Medicine 09/26/22 documented as of this encounter
[2024-09-02 14:18] LABS: MANUAL DIFF FLAG NO
[2024-09-02 14:30] LABS: Basophils Percent Auto 0.2 % (0-2); Eosinophils Absolute Auto 0.1 X10*3/uL (0.0-0.4); Eosinophils Percent Auto 2.8 % (0-4); Hematocrit 37.5 % (37.0-47.0); Hemoglobin 11.9 g/dl (12.0-16.0); Imm Gran Abs Auto 0.02 X10*3/uL (0.00-0.03); Imm Gran Pct Auto 0.4 % (0.0-0.4); Lymphocytes Absolute Auto 0.7 X10*3/uL (1.2-4.9); Lymphocytes Percent Auto 14.8 % (20-40); Mean Corpuscular HGB Conc 31.7 g/dl (31.0-35.0); Mean Corpuscular Hemoglobin 31.6 pg (27.0-33.0); Mean Corpuscular Volume 99.5 fL (80.0-98.0); Mean Platelet Volume 12.4 fL (9.4-12.3); Monocytes Absolute Auto 0.4 X10*3/uL (0.1-1.2); Neutrophils Absolute Auto 3.4 x10*3/uL (2.0-8.3); Neutrophils Percent Auto 73.8 % (45-73); Platelet Count 126 X10*3/uL (160-400); Red Blood Count 3.77 X10*6/uL (4.20-5.50); Red Cell Distribution Width 12.8 % (11.0-16.0); White Blood Count 4.6 X10*3/uL (4.8-10.8)
[2024-09-02 14:34] LABS: Appearance Urine Clear; Color Urine Yellow; Glucose Urine UA Negative (Negative); Leukocyte Esterase Urine Negative (Negative); Nitrite Urine Negative (Negative); Specific Gravity - Urine <= 1.005 (1.005-1.025); Urine Blood Negative (Negative); Urine Ketones Negative (Negative); Urine Protein Negative (Neg-Trace)
[2024-09-02 14:51] LABS: Alanine Aminotransferase 38 U/L (0-31); Anion Gap 12 (12-20); Aspartate Amino Transferase 41 U/L (5-31); Bilirubin Total 0.6 mg/dL (0.0-1.0); Blood Urea Nitrogen 46 mg/dL (9-16); Calcium 9.9 mg/dL (8.4-10.2); Carbon Dioxide 26 mmol/L (22-29); Chloride 109 mmol/L (96-108); Cholesterol 151 mg/dL (<200); Estimated Glomerular Filt Rate 31; Glucose Fasting 97 mg/dL (60-99); HDL Cholesterol 69 mg/dL (>40); LDL Cholesterol Calculated 72 mg/dL (<100); Potassium 4.8 mmol/L (3.3-5.1); Sodium 142 mmol/L (135-145); Total Protein 6.7 g/dL (6.5-8.0); Triglycerides 52 mg/dL (<150)
[2024-09-02 15:07] LABS: Creatinine Urine 20.61 mg/dL; Microalbum/Creatinine Ratio Ur 38.8 ug/mg cr (<30)
[2024-09-02 15:17] LABS: Alkaline Phosphatase 60 U/L (39-117); TSH reflex Free T4 0.56 uIU/mL (0.32-4.0)
== END 2024-09-02 10:18 | disposition home or self-care (01) ==
LOC: HO.WFDLDS 10:17
PROVIDERS: Visit Provider Family Medicine
DX: Z00.00 Encounter for general adult medical examination without abnormal findings (principal); I10 Essential (primary) hypertension
CPT/HCPCS: 36415; 80053; 80061; 81003; 82043; 82570; 84443; 85025

== ENCOUNTER 2024-09-24 08:32 | Outpatient (AMB) | payer MEDICARE, SELFPAY ==
--- OUTSIDE RECORDS SUMMARY | 2024-09-24 08:55 | XMS_ITS | Encounter Summary ---
Author Organization [facility] Address [address] [place] [address] Phone Care Team Providers Care Carpet Journeyman Name Role Phone Stephen Rowley MD Primary Care Provider [phone] Encounter Details Date Type Department Care Team (Late Contact Info) Description 01/11/2023 Documentation Only [facility] [address] [place] [address] Lavelle Mcmullen DO [address] [place] [address] Social History Tobacco Use Types [...] Visit [facility] [address] [place] [address] Lavelle Mcmullen DO [address] [place] [address] documented as of this encounter Visit Diagnoses Not on filedocumented in this encounter Care Teams Carpet Journeyman Relationship Specialty Start Date End Date Stephen Rowley MD PCP - General Internal Medicine 09/26/22 documented as of this encounter
--- NOTE | 2024-09-24 09:06 | MHC.PC.OV ---
Vital Signs 09/24/24 09:10 Height 5 ft 1 in Weight 168 lb 6 oz BMI 31.8 BP 108/60 Blood Pressure Location Rt brachial Position Sitting Respiration 14 Pulse 52 Pulse Source Pulse Oximeter Temp 97.8 F Temp Source Oral Pulse Oximetry (%) 98 Oxygen Delivery Method Room Air Intake Visit Reasons: Annual Physical - see comments Intake Note: patient is scheduled for Annual physical and has no concern at this time. Allergies amlodipine [From [facility]] Allergy (Severe, Verified 09/24/24 09:08) Palpitations amoxicillin Allergy (Severe, Verified 09/24/24 09:08) Rash Medication List - Last Reconciled 09/24/24 by Mike Silverman MD amiloride 5 mg PO BID aspirin 81 mg PO DAILY atorvastatin 40 mg PO DAILY calcium carbonate (Calcium 600) 600 mg PO DAILY cholecalciferol (vitamin D3) (Vitamin D3) 20 mcg PO DAILY lisinopril 10 mg PO DAILY metoprolol succinate ER 25 mg PO DAILY ibhftkto-mvo-xxgr-FA-vit K-lut 8 mg iron-400 mcg-50 mcg (Centrum Silver Women) 1 tab PO DAILY omeprazole 40 mg PO DAILY 90 days risperidone 3 mg PO BID Tobacco use date assessed: 09/24/24 Fall risk assessment: No Falls in past year Dental Screening Dental Screen Date: 09/24/24 Did you have a dental visit in the last 12 months?: Yes Did you have a dental problem in the last 6 months where you did not have access to dental care?: No Was dental information given to patient?: No HPI Annual Physical - see comments HPI Details 69 y/o female presents for a CPE with f/u labs and health maintenance. Labs drawn 09/02/24. Reviewed labs with pt. Mild anemia. Elevated liver enzymes. AST 41. ALT 38. Triglycerides 52. TC 151. LDL 72. HDL 69. She is on artovastatin 40mg daily. Creatinine 1.62. Blood pressure today 108/60, 52p. She is on lisinopril 10mg, metoprolol 25mg daily. Pt notes she had a bone density done last year and was prescribed osteoporosis. She declines meds for this at this time. [facility] Medical History (Updated 09/24/24 @ 09:35 by David Caldera) Hyperlipidemia Hypertension Anxiety Hiatal hernia TREE (obstructive sleep apnea) HOCM (hypertrophic obstructive cardiomyopathy) Bipolar disorder CKD (chronic kidney disease) History of aortic aneurysm GERD (gastroesophageal reflux disease) Surgical History Hx of colonoscopy History of dental surgery Hx of melanoma excision (~1970) Social History Housing: Apartment Are you a primary weekend caregiver to a significant other at home: No Do you presently have visiting nurse or other home services: No Comment: aware of trip hazard Patient Tobacco Use Status: Never used Tobacco e-Cigarette/Vaping Use: Never Used service: No Current occupational status: retired Cognitive needs: No Hearing needs: No Vision needs: Yes Questionnaire PHQ-9 Over the last 2 weeks, how often have you been bothered by any of the following problems? 1. Little interest or pleasure in doing things: not at all 2. Feeling down, depressed, or hopeless: not at all 3. Trouble falling or staying asleep, or sleeping too much: not at all 4. Feeling tired or having little energy: not at all 5. Poor appetite or overeating: not at all 6. Feeling bad about yourself - or that you are a failure or have let yourself or your family down: not at all 7. Trouble concentrating on things, such as reading the newspaper or watching television: not at all 8. Moving or speaking so slowly that other people could have noticed. Or the opposite - being so fidgety or restless that you have been moving around a lot more than usual: not at all 9. Thoughts that you would be better off or of hurting yourself in some way: not at all Total score: 0 Depression Screening Interpretation: Negative Depression Screening Done: Yes 22581 - PHQ-9 Billing: Yes Source: Developed by Drs. Michael Flores, Daily Muro, Mic Pond and colleagues, with an educational ary from [employer]. Thrive Questionnaire Date Thrive assessed: 09/24/24 I am a: Patient What is your living situation today?: I have a steady place to live Within the past 12 months, did the food you bought not last and you didn't have the money to get more?: Never true Within the past 12 months, did you worry whether your food would run out before you got money to buy more?: Never true Do you have trouble paying for medicines?: No Do you have trouble getting transportation to medical appointments?: No Do you have trouble paying your heating and electricity bill?: No Do you have trouble taking care of your child, family member or friend?: No Do you have trouble with day-to-day activities such as bathing, preparing meals, shopping, managing finances, etc.?: No Are you currently unemployed and looking for a job?: No Are you interested in more education?: No Please select the resources that you would like help with: None Currently or been in a relationship where the following occur: No concerns reported THRIVE Score: 0 AUDIT C Alcohol Use Questionnaire (AUDIT-C) 1. How often do you have a drink containing alcohol?: Never Total Score: 0 RODOLFO-7 AMB Questionnaire RODOLFO-7 Date RODOLFO - 7 assessed: 09/24/24 Feeling nervous, anxious, or on edge: 0 = Not at all Not being able to stop or control worryin = Not at all Worrying too much about different things: 0 = Not at all Trouble relaxin = Not at all Being so restless that it is hard to sit still: 0 = Not at all Becoming easily annoyed or irritable: 0 = Not at all Feeling afraid as if something awful might happen: 0 = Not at all Total RODOLFO-7 score (0-4 normal; 5-9 mild; 10-14 moderate; 15-21 severe): 0 Source: Developed by Drs. Michael Flores, Daily Muro, Mic Pond and colleagues, with an educational ary from [employer]. RODOLFO-7 Assessment Billing RODOLFO-7 Assessment Tool: RODOLFO-7 Assessment 21213 Review of Systems Const Denies chills, Denies fatigue, Denies fever(s), Denies headache(s) and Denies weakness Eyes Denies change in vision ENT Denies dizziness, Denies headache(s), Denies hearing loss, Denies nasal congestion, Denies sinus pain, Denies sinus pressure and Denies sore throat Card Denies chest pain, Denies lightheadedness, Denies dyspnea and Denies other (palpitations) Resp Denies cough, Denies dyspnea and Denies wheezing GI Denies abdominal pain, Denies melena, Denies hematochezia, Denies change in bowel habits, Denies dyspepsia and Denies nausea Denies hematuria and Denies dysuria Musc Denies abnormal gait, Denies myalgias, Denies arthralgias, Denies numbness and Denies tingling Skin/Breast Denies rash, Denies unusual bruising and Denies wounds Neuro Denies abnormal gait, Denies dizziness, Denies headache(s), Denies memory loss, Denies numbness, Denies Sensory deficit (Neuro), Denies tingling and Denies weakness Psych Denies anxiety, Denies depression and Denies memory loss Endo Denies cold intolerance, Denies fatigue, Denies heat intolerance, Denies polydipsia and Denies polyuria Kade/Lymph Denies easy bleeding and Denies easy bruising Aller/Immun Denies wheezing Physical exam (Primary Care) Vital Signs: Last Vital Signs Temp 97.8 F 09/24/24 09:10 Pulse 52 09/24/24 09:10 Resp 14 09/24/24 09:10 BP 108/60 09/24/24 09:10 Pulse Ox 98 09/24/24 09:10 Oxygen Delivery Method Room Air 09/24/24 09:10 BMI result Body Mass Index 31.8 Tobacco/Smoking Status: Tobacco use Status Tobacco use date assessed 09/24/24 09/24/24 09:14 Patient Tobacco Use Status Never used Tobacco 09/24/24 09:14 e-Cigarette/Vaping Use Never Used 09/24/24 09:14 PHQ-9: PHQ-9 Score PHQ-9: Total score 0 09/24/24 09:26 Depression Screening Interpretation: Negative Thrive Assessment: Date of Thrive Assessment Date Thrive assessed 09/24/24 09/24/24 09:14 Currently or been in a relationship where the following occur: No concerns reported Const General: no acute distress, well developed, alert and awake Nutritional Appearance: well nourished Orientation/consciousness: patient oriented x3 HENMT Head: Yes normocephalic and Yes atraumatic Ears: hearing grossly normal bilaterally and TM's normal bilaterally General nose exam: Normal external nose present and Normal nares present Mouth: Normal oral and palatal mucosa present and moist mucous membranes Teeth and gingiva: dentition normal Throat: Yes posterior oropharynx normal Eyes General: appearance normal, both eyes and all related structures Pupils: Equal, round and reactive pupils present and Pupil accommodation reflex normal EOM: EOMs intact bilaterally Neck Neck: Yes normal visual inspection, Yes no lymphadenopathy and Yes trachea midline Thyroid: Thyroid normal Carotids: no bruits Lymphatic: no lymphadenopathy noted Chest Chest palpation & inspection: normal inspection of the chest Resp Effort & Inspection: normal respiratory effort Auscultation: clear to auscultation bilaterally Cardio Rate: regular rate Rhythm: regular rhythm Heart sounds: S1 normal heart sound present, S2 normal heart sound present, no gallops, no murmurs and no rubs Bruits: no abdominal aortic bruits and no carotid bruits GI Palpation (GI): No Abdominal aortic bruit present, Soft to palpation, nontender, No hepatosplenomegaly present and No Rebound tenderness present Auscultation: normal bowel sounds General: Yes no CVA tenderness Back/Spine/Pelvis Back: no CVA tenderness Cervical Spine: cervical ROM normal and No Cervical spine tenderness Thoracic/Lumbar Spine: thoraco-lumbar ROM normal, No pain with thoraco-lumbar ROM, No thoracic spinal tenderness and No lumbar spinal tenderness Skin Lesions: no lesions Rashes: no rashes Trauma: no lacerations or abrasions Wounds: no wounds Nails: normal Neuro General: patient oriented x3 Cranial nerves: Yes Equal, round and reactive pupils present Cognition (Neuro): normal cognition Gait exam (Neuro): Normal gait present Motor exam (neuro): 5/5 motor strength present throughout Sensory Exam: No Sensory deficit (Neuro) Deep tendon reflexes (DTR's): Right patellar reflex intensity grade: 2+ and Left patellar reflex intensity grade: 2+ Extrem General: Yes normal to inspection and No edema Psych Appearance: grossly normal Affect: normal affect Attitude: cooperative Thought process: Normal thought process present Coding Level of Care Code Est Pt Prev Care >65y(67392) Diagnoses Adult general medical exam Z00.00 Hyperlipidemia E78.5 Abnormal uterine bleeding (AUB) N93.9 Aortic aneurysm I71.9 Osteoporosis M81.0 Elevated liver enzymes R74.8 Hypertension I10 Chronic renal failure N18.9 Breast cancer screening by mammogram Z12.31 Screening for colon cancer Z12.11 Additional Codes RODOLFO-7 Assessment Billing - RODOLFO-7 Assessment Tool: RODOLFO-7 Assessment 83753 ([id number]) PHQ-9 - 11847 - PHQ-9 Billing: Yes ([id number]) Assessment & Plan Assessment & Plan (1) Adult general medical exam: Code(s): Z00.00 - Encounter for general adult medical examination without abnormal findings Category: Medical Plan: 69-year-old?female?presents?for?complete?physical?exam Encouraged?healthy?diet?with?active?lifestyle?and?plenty?of?exercise (2) Hyperlipidemia: Code(s): E78.5 - Hyperlipidemia, unspecified Category: Medical Plan: Lipids?are?well?controlled?on?atorvastatin Continue?current?medication?and?healthy?diet (3) Abnormal uterine bleeding (AUB): Code(s): N93.9 - Abnormal uterine and vaginal bleeding, unspecified Category: Medical Plan: Followed?by?? Continues monitoring (4) Aortic aneurysm: Code(s): I71.9 - Aortic aneurysm of unspecified site, without rupture Category: Medical Plan: Followed?by?Edd Thomas Continue?good?blood?pressure?control Follow-up?with?Cardiology?as?recommended (5) Osteoporosis: Code(s): M81.0 - Age-related osteoporosis without current pathological fracture Category: Medical Plan: Patient?says?she?had?a?bone?density?test?within?the?past?year?and?diagnosed?with?osteoporosis Discussed?bisphosphonates?briefly?but?patient?declined?these Continue?good?sources Of?calcium Encouraged?exercise (6) Elevated liver enzymes: Code(s): R74.8 - Abnormal levels of other serum enzymes Category: Medical Plan: Mildly?elevated?liver?enzymes Does?not?use?much?Tylenol?or?alcohol Encouraged?good?hydration She?notes?she?gained?a?little?weight?recently Encouraged?weight?loss (7) Hypertension: Code(s): I10 - Essential (primary) hypertension Category: Medical Plan: Blood?pressure?is?well?controlled.??Goal?is?less?than?130/80 Continue?current?medications (8) Chronic renal failure: Code(s): N18.9 - Chronic kidney disease, unspecified Category: Medical Plan: Creatinine?1.62?and?patient?notes?that?her?creatinine?had?been?above?2.0 Her?stacker driver?recommended?increasing?hydration Improving Continue?good?hydration Follow-up?with??Benedict (9) Breast cancer screening by mammogram: Code(s): Z12.31 - Encounter for screening mammogram for malignant neoplasm of breast Category: Medical Plan: Mammogram?last?fall?was?negative?for?malignancies Up-to-date?and?will?continue?annual?screening (10) Screening for colon cancer: Code(s): Z12.11 - Encounter for screening for malignant neoplasm of colon Category: Medical Plan: Patient?says?she?had?a?Cologuard?test?within?the?past?year. She?says?this?was?negative.??I?do?not?have?the?report Will?request?report Orders: Orders Microalbumin, Random (w Creat) Today I10 - Essential (primary) hypertension [facility]. Panel Fast Today R74.8 - Abnormal levels of other serum enzymes, Z00.00 - Encounter for general adult medical examination without abnormal findings
[2024-09-24 09:10] VITALS: BP 108/60; PULSE 52; RESP 14; TEMP 36.6; O2SAT 98; BMI 31.8
== END 2024-09-24 09:47 | disposition home or self-care (01) ==
LOC: HO.HMCFM 08:33
PROVIDERS: PCP Family Medicine; Visit Provider Family Medicine
DX: Z00.00 Encounter for general adult medical examination without abnormal findings (principal); E78.5 Hyperlipidemia, unspecified; N93.9 Abnormal uterine and vaginal bleeding, unspecified; I71.9 Aortic aneurysm of unspecified site, without rupture; M81.0 Age-related osteoporosis without current pathological fracture; R74.8 Abnormal levels of other serum enzymes; I12.9 Hypertensive chronic kidney disease with stage 1 through stage 4 chronic kidney disease, or unspecified chronic kidney disease; N18.9 Chronic kidney disease, unspecified; Z12.31 Encounter for screening mammogram for malignant neoplasm of breast; Z12.11 Encounter for screening for malignant neoplasm of colon

== ENCOUNTER → 2024-09-24 08:32 | Outpatient (BNVA) | payer MEDICARE, SELFPAY | PROVIDERS: PCP Family Medicine; Visit Provider Family Medicine | DX: Z00.00 Encounter for general adult medical examination without abnormal findings (principal); E78.5 Hyperlipidemia, unspecified; N93.9 Abnormal uterine and vaginal bleeding, unspecified; I71.9 Aortic aneurysm of unspecified site, without rupture; M81.0 Age-related osteoporosis without current pathological fracture; R74.8 Abnormal levels of other serum enzymes; I12.9 Hypertensive chronic kidney disease with stage 1 through stage 4 chronic kidney disease, or unspecified chronic kidney disease; N18.9 Chronic kidney disease, unspecified | CPT/HCPCS: 96127; 99397 ==

== ENCOUNTER 2025-01-15 10:09 | Outpatient (REF) | payer MEDICARE, SELFPAY ==
--- OUTSIDE RECORDS SUMMARY | 2025-01-15 12:25 | XMS_ITS | Encounter Summary ---
Author Organization [facility], Address [address] [place] [address] Phone Care Team Providers Care Braille Proofreader Name Role Phone Mike Silverman MD Primary Care Provider Encounter Details Date Type Department Care Team (Late Contact Info) Description 01/11/2023 Documentation Only [facility] [address] [address] Lavelle Mcmullen DO [address] [place] [address] Social History Tobacco Use Types [...] Department Care Team (Late Contact Info) Description 06/18/2025 2:15 PM EST Office Visit [facility] [address] [place] [address] Lavelle Mcmullen DO [address] [facility] [address] [place] [address] documented as of this encounter Visit Diagnoses Not on filedocumented in this encounter Care Teams Braille Proofreader Relationship Specialty Start Date End Date Mike Silverman MD [address] [facility] [address] [place] [address] [phone] PCP - General Family Medicine 12/05/24 documented as of this encounter
--- OUTSIDE RECORDS SUMMARY | 2025-01-15 12:25 | XMS_ITS | Clinical Summary ---
Author Organization [facility], Address [address] [place] [address] [place] [address] Phone Care Team Providers Care Director Recreation Name Role Phone Mike Silverman MD Primary Care Provider Allergies Active Allergy Reactions Criticality Noted Date Comments Amlodipine 07/10/2018 Pt reports fast heart rate Amoxicillin Other (see comments) 09/10/2010 Medications omeprazole (PriLOSEC) [address] capsule Take 40 mg by mouth 09/09/2016 Active Aspirin Buf,CaCarb-MgCar b-MgO, 81 MG tablet Take 81 mg by mouth Active atorvastatin (LIPITOR) 40 MG tablet Take 1 tablet by mouth 1 (one) time each day 12/11/2017 Active metoprolol succinate XL (TOPROL XL) 25 [...] 180 tablet 3 06/07/2024 06/07/19 26 Active lisinopril 10 MG tablet TAKE 1 TABLET BY MOUTH 1 TIME EACH DAY. 90 tablet 3 10/07/2024 Active Active Problems Problem Noted Date Diagnosed [...] hypertension 01/23/2020 06/07/2023 Overview (01/23/2020): dr Tim, [place] nephropathy 01/23/2020 12/06/19 24 Encounters Date Type Department Care Team Description 12/05/2024 2:30 PM EDT Office Visit [facility], [address] [place] [address] Lavelle Mcmullen DO Stage 3a chronic kidney disease (HCC) (Primary Dx); Toxic nephropathy; Hypertensive heart and chronic kidney disease without heart failure, with stage 1 through stage 4 chronic kidney disease, or unspecified chronic kidney disease; Hyperosmolality and or hypernatremia from Last 3 Months Immunizations Immunization Administration [...] Sign Reading Time Taken Comments Blood Pressure 118/62 12/05/2024 1:53 PM EDT Pulse 68 12/05/2024 1:53 PM EDT Temperature - - Respiratory Rate - - Oxygen Saturation - - Inhaled Oxygen Concentration - - Weight 57.2 kg (126 lb) 02/07/2019 12:00 PM EDT Height 154.9 cm (5' 1 ) 02/07/2019 12:00 PM EDT Body Mass Index 23.81 02/07/2019 12:00 PM EDT Plan of Treatment Upcoming Encounters Date Type Department Care Team (Late st Contact Info) Description 06/18/2025 2:15 PM EST Office Visit [facility] [place], [address] [place] [id number] Lavelle Mcmullen DO [address] [place] [address] Health Maintenance Due Date Last Done Comments Breast Cancer Screening 1955 Pneumococcal Vaccine: 50+ Ye ars (1 of 2 - PCV) 1972 Colorectal Cancer Screening: Annual FOBT 2002 Colorectal Cancer Screening: Colonoscopy 2002 Colorectal Cancer Screening: Sigmoidoscopy 2002 Influenza Vaccine (#1) 2024 Hepatitis B Vaccine Aged Out No longe r eligible based on patient's age to complete this topic Procedures Procedure Name Priority Date/Time Associated Diagnosis Comments URINE ALBUMIN / CREATININE RATIO Routine 11/18/2024 9:51 AM EDT RENAL FUNCTION PANEL Routine 11/18/2024 9:51 AM EDT from Last 3 Months Results * (ABNORMAL) Urine Albumin / Creatinine Ratio (11/18/2024 9:51 AM EDT) Creatinine, Ur 32.5 Not Estab. mg/dL [facility] Albumin, Urine 10.6 Not Estab. ug/mL [facility] Albumin/Creatin ine Ratio 33(H) 0 - 29 mg/g creat [facility] Comment: Normal: 0 - 29 Moderately increased: 30 - 300 Severely increased: >300 11/18/2024 9:51 AM EDT 11/18/2024 us Lavelle Mcmullen DO LAB URINE ORDERABLES Final Resu lt [facility] [address] [place] [phone] * (ABNORMAL) Renal Function Panel (11/18/2024 9:51 AM EDT) Glucose 102(H) 70 - 99 mg/dL [facility] BUN 28(H) 8 - 27 mg/dL [facility] Creatinine 1.70(H) 0.57 - 1.00 mg/dL [facility] eGFR CKD-EPI CR 2020 32(L) >59 mL/min/1.7 3 [facility] BUN/Creatinine Ratio 16 12 - 28 [facility] Sodium 139 134 - 144 mmol/L [facility] Potassium 4.8 3.5 - 5.2 mmol/L [facility] Chloride 106 96 - 106 mmol/L [facility] Bicarbonate (CO2) 17(L) 20 - 29 mmol/L [facility] Calcium 10.0 8.7 - 10.3 mg/dL [facility] Albumin 4.1 3.8 - 4.8 g/dL [facility] Phosphorus 2.8(L) 3.0 - 4.3 mg/dL [facility] 11/18/2024 9:51 AM EDT 11/18/2024 us Lavelle Mcmullen DO LAB BLOOD ORDERABLES Final Resu lt [facility] [address] [place] [address] from Last 3 Months Insurance [facility] Medicare Care Teams Director Recreation Relationship Specialty Start Date End Date Mike Silverman MD [address] [phone] PCP - General Family Medicine 12/05/24
--- OUTSIDE RECORDS SUMMARY | 2025-01-15 12:25 | XMS_ITS | Encounter Summary ---
Author Organization [facility], Address [address] [place] [address] Phone Care Team Providers Care Business Integration Analyst Name Role Phone Mike Silverman MD Primary Care Provider Encounter Details Date Type Department Care Team (Late Contact Info) Description 12/06/2023 Documentation Only [facility] [address] [place] [address] Lavelle Mcmullen DO [address] [facility] [address] [place] [address] Social History Tobacco Use Types [...] [facility] [address] [place] [address] Lavelle Mcmullen DO [address] [facility] [address] [place] [address] documented as of this encounter Visit Diagnoses Not on filedocumented in this encounter Care Teams Business Integration Analyst Relationship Specialty Start Date End Date Mike Silverman MD [address] [facility] [address] [place] [address] [phone] PCP - General Family Medicine 12/05/24 documented as of this encounter
--- OUTSIDE RECORDS SUMMARY | 2025-01-15 12:25 | XMS_ITS | Clinical Summary ---
Author Organization [address] [place] [address] [place] [phone] Phone Care Team Providers Care Fourdrinier Machine Operator Name Role Phone Mike Silverman MD Primary Care Provider Medications atorvastatin (LIPITOR) 40 mg tablet Take 1 tablet (40 mg total) by mouth 1 (one) time each day. 90 tablet 1 06/04/2024 Active Active Problems Problem Noted Date Diagnosed Date Aneurysm of ascending aorta without rupture ([facility] V24) 11/29/2024 HOCM (hypertrophic obstructi ve cardiomyopathy) ([facility] V24, [facility] V28) 11/29/2024 Nonrheumatic aortic valve insufficiency 11/30/19 25 Encounters Date Type Department Care Team Description 01/08/2025 12:30 PM EDT Ancillary Procedure [facility] [address] [facility] [address] [place] [phone] Aneurysm of ascending aorta without rupture ([facility] V24); HOCM (hypertrophic obstructive cardiomyopathy) ([facility] V24, [facility] V28); Nonrheumatic aortic valve insufficiency 11/29/2024 [place] [facility] [place] [address] [facility] [address] [place] [phone] Ramiro Coburn MD from Last 3 Months Surgical History Surgery Date Site/Laterality Comments COLONOSCOPY 09/27/10 PROCEDURE: HISTORICAL COLONOSCOPY; COMMENT: hemorrhoids; repeat in ten years ESOPHAGOGASTRODUODENOSCOPY 09/27/10 PROCEDURE: MS ESOPHAGOGASTRODUODENOSCOPY TRANSORAL DIAGNOSTIC; COMMENT: erosive esophagitis with nodules MOLE REMOVAL PROCEDURE: HISTORICAL MOLE (REMOVAL OF); COMMENT: Dysplastic nevus 06/07 back (moderate atypia) OTHER SURGICAL HISTORY PROCEDURE: HISTORICAL MELANOMA; COMMENT: Malignant melanoma at age 13 abdominal wall Medical History Medical History Date Comments Other specified personal his tory presenting hazards to health(V15.89) DX:Other specifie d personal history presenting hazards to health(V15.89); COMMENT: melanoma History of dysplastic nevus 06/21/2013 DX:H istory of dysplastic nevus; COMMENT: Dysplastic nevus 06/07 back (moderate atypia) CKD (chronic kidney disease) , stage III ([facility] V24, [facility] V28) DX:CKD (chronic kidney disease), stage III (HCC); COMMENT: dr Tim, Hypernatremia DX:Hypernatremia Diabetes insipidus ([facility] V24) DX:Diabetes insipidus (HCC); COMMENT: d/t lithium use History of malignant melanoma of skin 09/10/2010 DX:History of malignant melanoma of skin; COMMENT: Malignant melanoma at age 13 abdominal wall Thoracic ascending aortic an eurysm ([facility] V24) DX:Thoracic ascending aortic aneurysm (HCC) 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 DX:Thyromegaly; COMMENT: on CT causing tracheal displacement Trachea displaced 10/2017 DX:Trachea dis placed; COMMENT: ct chest d/t thyroid Kidney cysts DX:Kidney cysts Vulvar abscess 03/29/2019 DX:Vulvar absces s Family History Medical History Relation Name Comments Prostate cancer Brother 1 Prostate cancer Father Other: Colorectal cancer Maternal Grandfather age 35 Uterine cancer Mother age 50 Lung cancer Sister 1 Throat cancer Son Breast cancer Neg Hx Relation Name Status Comments Brother 1 Brother 2 Alive Brother 3 Alive Father (Age 64) lung cance r Grandparent stomach [place] Maternal Grandfather Mother (Age 70) [place], [place] Paternal Grandmother Alive dm Sister 1 Sister 2 (Age 57) lung cance r Son Social History Tobacco Use Types Packs/Day Years Used Date Smoking Tobacco: Never Smokeless Tobacco: Never Alcohol Use Standard Drinks/Week Comments No 0 (1 standard drink = 0.6 oz pur e alcohol) Comments Unknown Sex and Gender Information Value Date Recorded Sex Assigned at Not on file Legal Sex Female 4:40 PM EST Gender Identity Not on file Sexual Orientation Not on file Obstetrics History Last Filed Vital Signs Vital Sign Reading Time Taken Comments Blood Pressure 110/58 01/08/2025 12:33 PM EDT Pulse 64 02/06/2024 8:42 AM EDT Temperature - - Respiratory Rate - - Oxygen Saturation - - Inhaled Oxygen Concentration - - Weight 75.8 kg (167 lb) 01/08/2025 12:33 PM EDT Height 154.9 cm (5' 1 ) 01/08/2025 12:33 PM EDT Body Mass Index 31.55 01/08/2025 12:33 PM EDT Plan of Treatment Health Maintenance Due Date Last Done Comments Zoster Vaccines (1 of 2) 1972 Pneumococcal Vaccine: 50+ Years (1 of 1 - PCV) 08/28/2003 Colorectal Cancer Screening: Stool Based Tests (FOBT/FIT) 04/02/2022 Falls Risk Assessment 04/02/2022 Hepatitis C Screening 04/02/2022 Medicare Annual Wellness Visit 04/02/2022 Social Influencers of Health Screening 04/02/2022 Hypertension/CHF/CAD Annual BMP Blood Test 04/07/2022 Depression Screening 04/24/2024 COVID-19 Vaccine (3 - 2024- season) 2024 05/09/2021, 08/02/2020 Influenza Vaccine (#1) 2024 Breast Cancer Screening 04/03/2025 04/03/20, 03/23/2022, 03/15/2021, Additional history exists RSV Immunization Adult Patients (1 - 1-dose 75+ series) 2028 Cholesterol Screening (Lipid Panel) 06/17/2029 06/17/2024 DTaP,Tdap,and Td Vaccines (3 - Td or Tdap) 09/14/2031 09/13/2021, 10/25/2007 Osteoporosis Screening (Bone Density Screening) 03/30/2033 03/30/2023 HIB Vaccines Aged Out No longer eligi ble based on patient's age to complete this topic HPV Vaccines Aged Out No longer eligi ble based on patient's age to complete this topic Hepatitis A Vaccines Aged Out No long er eligible based on patient's age to complete this topic Hepatitis B Vaccines Aged Out No long er eligible based on patient's age to complete this topic IPV Vaccines Aged Out No longer eligi ble based on patient's age to complete this topic MMR Vaccines Aged Out No longer eligi ble based on patient's age to complete this topic Meningococcal ACWY Vaccine Aged Out N o longer eligible based on patient's age to complete this topic Meningococcal B Vaccine Aged Out No l onger eligible based on patient's age to complete this topic RSV Immunization Patients Under 20 months Aged Out No longer eligible based on patient's age to complete this topic Varicella Vaccines Aged Out No longer eligible based on patient's age to complete this topic Procedures Procedure Name Priority Date/Time Associated Diagnosis Comments TRANSTHORACIC ECHOCARDIOGRAM (TTE) COMPLETE Routine 01/08/2025 12:59 PM EDT Aneurysm of ascending aorta without rupture ([facility]/HCC V24) HOCM (hypertrophic obstructive cardiomyopathy) (CMS/HCC V24, CMS/HCC V28) Nonrheumatic aortic valve insufficiency LIPID PANEL Routine 06/17/2024 9:32 AM EST SCREENING MAMMOGRAPHY BI 2-VIEW BREAST INC CAD Routine 04/03/2023 9:55 AM EST Encounter for screening mammogram for malignant neoplasm of breast DXA BONE DENSITY STUDY 1+ SITS AXIAL SKEL Routine 03/30/2023 10:10 AM EST Chronic kidney disease, stage 3a (CMS/HCC V24, CMS/HCC V28) Pure hypercholesterolemia , unspecified Essential (primary) hypertension Postmenopausal bleeding from Last 3 Months or Most Recently Relevant to Health Maintenance Results * (ABNORMAL) TRANSTHORACIC ECHOCARDIOGRAM (TTE) COMPLETE (01/08/2025 12:59 PM EDT) Left Atrium Minor Catron 6.0 cm CV PACS Left Atrium Major Catron 6.0 cm CV PACS LA Area Sys (A2C) 23 cm2 CV PACS LA Area Sys (A4C) 23 cm2 CV PACS LA Volume (BP) 73 mL CV PACS RA Area 16.7 cm2 CV PACS RA 2D Volume 42 mL CV PACS AV Mean Gradient 11 mmHg CV PACS Ao VTI 50.9 cm CV PACS AV Peak Forrest 2.3 m/s CV PACS AV Peak Gradient 21 mmHg CV PACS AV Area Continuity Equation 3.5 cm2 CV PACS AV Area Peak Velocity 3.5 cm2 CV PACS Aortic Sinus Valsalva 3.7 cm CV PACS Ascending Aorta 4.7 cm CV PACS IVSD 0.9 0.6 - 0.9 cm CV PACS LVIDD 5.5(A) 3.8 - 5.2 cm CV PACS LVIDS 2.6 2.2 - 3.5 cm CV PACS LVOT Diameter 2.3 cm CV PACS LVOT Mean Forrest 1.2 m/s CV PACS LVOT Mean Grad 7 mmHg CV PACS LVOT Peak VTI 42.4 cm CV PACS LVOT Peak Forrest 1.9 m/s CV PACS LVOT Peak Gradient 15 mmHg CV PACS LVPWD 1.1(A) 0.6 - 0.9 cm CV PACS MV E' Tissue Velocity Lateral 11 cm/s CV PACS MV E' Tissue Velocity Septal 6 cm/s CV PACS LVOT Area 4.2 cm2 CV PACS LVOT Stroke Volume 176 mL CV PACS E Wave Deceleration Time 237 119 - 242 ms CV PACS MV Peak A Forrest 0.62 m/s CV PACS MV Peak E Forrest 0.69 m/s CV PACS PV Acceleration Time 95 ms CV PACS PV Acceleration Time 95 ms CV PACS RV Diastolic Mid Dimension 3.6(A) 1.9 - 3.5 cm CV PACS RV S' 11 cm/s CV PACS TAPSE 20 mm CV PACS TR Peak Velocity 2.06 m/s CV PACS TR Peak Gradient 17 mmHg CV PACS E/E' Ratio Septal 12 CV PACS E/E' Ratio Averaged 9 CV PACS LVOT Stroke Index 101 mL/m2 CV PACS Relative Wall Thickness ratio 0.40 CV PACS LVOT:AV VTI Index 0.83 CV PACS FS 53 % CV PACS LV Mass 2D 213 g CV PACS Ascending Aorta Index 2.69 cm/m2 CV PACS LVOT flow 498 mL/s CV PACS RA 2D Volume Index 24 mL/m2 CV PACS ZE Index (VTI) 1.98 cm2/m2 CV PACS ZE Index (Pk Forrest) 2.00 cm2/m2 CV PACS LVIDD Index 3.14 cm/m2 CV PACS LVIDS Index 1.49 cm/m2 CV PACS AV Velocity Ratio 0.83 CV PACS E/A Ratio 1.1 CV PACS E/E' Ratio Lateral 6 CV PACS LA Volume Index (BP) 42 mL/m2 CV PACS LV Mass Index 2D 122 g/m2 CV PACS BSA 1.81 m2 CV PACS Right Ventricular Peak Systolic Pressure 25 mmHg CV PACS Est. RA Pressure 8 mmHg CV PACS Anatomical Region Laterality Modality Ultrasound Narrative 01/10/2025 12:18 PM EDT Left ventricle cavity size is normal. Wall thickness is normal with basal septal hypoertrophy. No regional LV wall motion abnormalities noted. Left ventricular systolic function is in the normal range with an ejection fraction of 60-65%. Parameters of diastolic function are indeterminate Right ventricle cavity is normal. Right ventricular systolic function is normal. Tricuspid Valve: Estimated RA pressure is 8 mmHg. The RVSP is estimated at 25 mmHg. Left Atrium: Left atrium cavity is moderately dilated. The ascending aorta is dilated (4.7 cm). In 2020 the ascending aorta was measured at 4.6 cm. In 2022 4.5 cm. So there has been no significant change. Left Ventricle Left ventricle cavity size is normal. Wall thickness is normal with basal septal hypoertrophy. Systolic function is normal with an ejection fraction of 60-65%. There are no regional LV wall motion abnormalities. Indeterminate diastolic function. Right Ventricle Right ventricle cavity appears normal. Systolic function is normal. Left Atrium Left atrium cavity is moderately dilated. Right Atrium Right atrium cavity is normal. IVC/SVC Inferior vena cava is dilated. RA pressures is estimated to be 8 mmHg (IVC diameter >21 mm and decreases >50% during inspiration). Mitral Valve The leaflets are mildly thickened. There is mild regurgitation. There is no evidence of mitral valve stenosis. Tricuspid Valve The leaflets exhibit normal excursion. There is trace regurgitation. There is no evidence of tricuspid valve stenosis. Estimated RA pressure is 8 mmHg. The RVSP is estimated at 25 mmHg. Aortic Valve The aortic valve is trileaflet. There is mild regurgitation. There is no significant stenosis. Pulmonic Valve Visualized portions of the pulmonic valve appear normal. There is no regurgitation or stenosis. Ascending Aorta The ascending aorta is dilated (4.7 cm). Pericardium Pericardium appears normal. There is no pericardial effusion. Study Details Overall the study quality was adequate. us Ramiro Coburn MD CV ECHO PROCEDURES Final Result * Lipid panel (06/17/2024 9:32 AM EST) Cholesterol Total 164 100 - 199 mg/dL [facility] Triglycerides 67 0 - 149 mg/dL [facility] HDL Cholesterol 89 >39 mg/dL [facility] VLDL Cholesterol Calculated 13 5 - 40 mg/dL [facility] LDL Chol Calc ([facility]) 62 0 - 99 mg/dL [facility] 06/17/2024 9:32 AM EST 06/17/2024 Narrative [facility] - 06/18/2024 1:06 AM EST Performed at: 01 - [facility] [address] [id number] [employer] Driver: Aleja Leroy MD, Phone: [phone] us Ramiro Coburn MD LAB BLOOD ORDERABLES Final Resu lt [facility] * SCREENING MAMMOGRAPHY BI 2-VIEW BREAST INC CAD (04/03/2023 9:55 AM EST) Anatomical Region Laterality Modality Radiographic Gabriella ging 03/23/2022 9:45 AM EST Narrative 04/03/2023 5:14 PM EST This is a summary report. The complete report is available in the patient's medical record. If you cannot access the medical record, please contact the sending organization for a detailed fax or copy. Exam: Screening mammogram Findings: Digital bilateral full-field screening mammography is performed with tomosynthesis and interpreted with the aid of computer-aided detection. Comparison is made with 03/23/2022 and as far back as 02/26/2019. Breast parenchyma is heterogeneously dense, which may obscure small masses. No worrisome interval change in scattered groupings of calcifications in both breasts which have similar appearance bilaterally. No new suspicious mass, architectural distortion, or suspicious calcifications. Impression: No mammographic evidence of malignancy. BI-RADS 2-benign Procedure Note Ade Awan MD - 05/30/2023 This is a summary report. The complete report is available in thepatient's medical record. If you cannot access the medical record, pleasecontact the sending organization for a detailed fax or copy. Exam: Screening mammogram Findings: Digital bilateral full-field screening mammography is performedwith tomosynthesis and interpreted with the aid of computer-aideddetection. Comparison is made with 03/23/2022 and as far back as104/28/2018. Breast parenchyma is heterogeneously dense, which may obscure smallmasses. No worrisome interval change in scattered groupings ofcalcifications in both breasts which have similar appearance bilaterally.No new suspicious mass, architectural distortion, or suspiciouscalcifications. Impression: No mammographic evidence of malignancy. BI-RADS 2-benign us Stephen Rowley MD IMG XR PROCEDURES Final Result * DXA BONE DENSITY STUDY 1+ SITS AXIAL SKEL (03/30/2023 10:10 AM EST) Anatomical Region Laterality Modality Bone Densitometr y 12/15/2022 11:4 1 AM EDT Narrative 03/30/2023 8:40 PM EST STUDY: DUAL ENERGY X-RAY ABSORPTIOMETRY / DXA REASON FOR EXAM: Female, 67 years old other(see comments) TECHNIQUE: Bone Mineral Density (BMD) measurements of the lumbar spine and left hip were obtained using [employer] Discovery W ([id number]/N [id number]). COMPARISON: None FINDINGS: L1-L4 BMD: 0.718 g/cm2 L1-L4 T score: -3.0. This corresponds to osteoporosis. Left femoral neck BMD: 0.531 g/cm2 Left femoral neck T score: -2.9. This corresponds to osteoporosis. Left total hip BMD: 0.700 g/cm2 Left total hip T score: -2.0. This corresponds to osteopenia. IMPRESSION: IMPRESSION: Osteoporosis Reference Information: The T-score is the number of standard deviations above or below the standard which is normal for young adults at their peak bone mineral density. The World Health Organization (WHO) interprets the T-scores as follows: At or above -1 SD Normal bone density Between -1 and -2.5 SD Osteopenia At or below -2.5 SD Osteoporosis Procedure Note Jaret Leonard MD - 05/30/2023 STUDY: DUAL ENERGY X-RAY ABSORPTIOMETRY / DXA REASON FOR EXAM: Female, 67 years old other(see comments) TECHNIQUE: Bone Mineral Density (BMD) measurements of the lumbar spineand left hip were obtained using [employer] Discovery W (S/N [id number]). COMPARISON: None FINDINGS: L1-L4 BMD: 0.718 g/cm2 L1-L4 T score: -3.0. This corresponds to osteoporosis. Left femoral neck BMD: 0.531 g/cm2 Left femoral neck T score: -2.9. This corresponds to osteoporosis. Left total hip BMD: 0.700 g/cm2 Left total hip T score: -2.0. This corresponds to osteopenia. IMPRESSION: IMPRESSION: Osteoporosis Reference Information: The T-score is the number of standard deviations above or below thestandard which is normal for young adults at their peak bone mineral density. The World HealthOrganization (WHO) interprets the T-scores as follows: At or above -1 SD Normal bone density Between -1 and -2.5 SD Osteopenia At or below -2.5 SD Osteoporosis Luli Harper NP IM DXA PROCEDURES Final Res ult from Last 3 Months or Most Recently Relevant to Health Maintenance Insurance [employer] MEDICARE Care Teams Fourdrinier Machine Operator Relationship Specialty Start Date End Date Mike Silverman MD [address] [place] [address] Dr [place] PCP - General 01/22/24
[2025-01-15 15:16] LABS: Alanine Aminotransferase 20 U/L (0-31); Albumin Level 3.9 g/dL (3.5-5.0); Alkaline Phosphatase 55 U/L (39-117); Anion Gap 12 (12-20); Aspartate Amino Transferase 33 U/L (5-31); Blood Urea Nitrogen 34 mg/dL (9-16); Calcium 9.3 mg/dL (8.4-10.2); Carbon Dioxide 29 mmol/L (22-29); Chloride 105 mmol/L (96-108); Estimated Glomerular Filt Rate 28; Potassium 5.0 mmol/L (3.3-5.1); Sodium 141 mmol/L (135-145); Total Protein 6.3 g/dL (6.5-8.0)
== END 2025-01-15 10:10 | disposition home or self-care (01) ==
LOC: HO.WFDLDS 10:09
PROVIDERS: Visit Provider Family Medicine
DX: Z00.00 Encounter for general adult medical examination without abnormal findings (principal); I10 Essential (primary) hypertension; R74.8 Abnormal levels of other serum enzymes
CPT/HCPCS: 36415; 80053; 82043; 82570

== ENCOUNTER 2025-01-28 08:50 | Outpatient (AMB) | payer MEDICARE, SELFPAY ==
--- NOTE | 2025-01-28 09:28 | MHC.PC.OV ---
Vital Signs 01/28/25 09:33 Height 5 ft 1 in Weight 166 lb BMI 31.4 BP 122/78 Blood Pressure Location Rt brachial Position Sitting Respiration 14 Pulse 45 L Pulse Source Pulse Oximeter Temp 98.6 F Temp Source Temporal Artery Scan Pulse Oximetry (%) 98 Oxygen Delivery Method Room Air Intake Visit Reasons: f/u HTN, labs Intake Note: Brenna presents in the office today for a follow up to hypertension and her latest lab results. Allergies amlodipine (From [facility]) Allergy (Severe, Verified 01/28/25 09:30) Palpitations amoxicillin Allergy (Severe, Verified 01/28/25 09:30) Rash Medication List - Last Reconciled 01/28/25 by Mike Silverman MD amiloride 5 mg PO BID aspirin 81 mg PO DAILY atorvastatin 40 mg PO DAILY calcium carbonate (Calcium 600) 600 mg PO DAILY cholecalciferol (vitamin D3) (Vitamin D3) 20 mcg PO DAILY lisinopril 10 mg PO DAILY metoprolol succinate ER 25 mg PO DAILY xuyuqfbg-wzx-tvdb-FA-vit K-lut 8 mg iron-400 mcg-50 mcg (Centrum Silver Women) 1 tab PO DAILY omeprazole 40 mg PO DAILY 90 days risperidone 3 mg PO BID Tobacco use date assessed: 01/28/25 Fall risk assessment: No Falls in past year Last assessed Fall Risk: 01/28/25 Dental Screening Dental Screen Date: 01/28/25 Did you have a dental visit in the last 12 months?: Yes Did you have a dental problem in the last 6 months where you did not have access to dental care?: No Was dental information given to patient?: Patient has dentist HPI f/u HTN, labs HPI Details 69 y/o female presents to f/u HTN, labs. Blood pressure today 122/78, 45p. She is on lisinopril 10mg, metoprolol 25mg daily. Pt notes recent FIT test was negative. [facility] Medical History (Updated 01/28/25 @ 10:05 by David Caldera) Hyperlipidemia Hypertension Anxiety Hiatal hernia TREE (obstructive sleep apnea) HOCM (hypertrophic obstructive cardiomyopathy) Bipolar disorder CKD (chronic kidney disease) History of aortic aneurysm GERD (gastroesophageal reflux disease) Surgical History Hx of colonoscopy History of dental surgery Hx of melanoma excision (~1970) Family History (Updated 01/28/25 @ 09:32 by Leonora Guerrero CMA) Sister Substance abuse Alcoholism Paternal Grandfather Substance abuse Alcoholism Social History (Updated 01/28/25 @ 09:33 by Leonora Guerrero [facility]) Housing: Apartment Are you a primary professional healthcare representative to a significant other at home: No Do you presently have visiting nurse or other home services: No Alcohol intake: never Comment: aware of trip hazard Patient Tobacco Use Status: Never used Tobacco e-Cigarette/Vaping Use: Never Used Second Hand Smoke Exposure: No Use of substances other than those prescribed or required for medical reasons: No service: No Current occupational status: retired Cognitive needs: No Hearing needs: No Vision needs: Yes Questionnaire Thrive Questionnaire Date Thrive assessed: 09/24/24 I am a: Patient What is your living situation today?: I have a steady place to live Within the past 12 months, did the food you bought not last and you didn't have the money to get more?: Never true Within the past 12 months, did you worry whether your food would run out before you got money to buy more?: Never true Do you have trouble paying for medicines?: No Do you have trouble getting transportation to medical appointments?: No Do you have trouble paying your heating and electricity bill?: No Do you have trouble taking care of your child, family member or friend?: No Do you have trouble with day-to-day activities such as bathing, preparing meals, shopping, managing finances, etc.?: No Are you currently unemployed and looking for a job?: No Are you interested in more education?: No Please select the resources that you would like help with: None Currently or been in a relationship where the following occur: No concerns reported THRIVE Score: 0 RODOLFO-7 AMB Questionnaire RODOLFO-7 Date RODOLFO - 7 assessed: 09/24/24 Source: Developed by Drs. Michael Flores, Daily Muro, Mic Pond and colleagues, with an educational ary from [employer]. Review of Systems Const Denies chills, Denies fatigue, Denies fever(s), Denies headache(s) and Denies weakness ENT Denies dizziness and Denies headache(s) Card Denies dyspnea Resp Denies cough, Denies dyspnea, Denies wheezing and Denies other (shortness of breath) Musc Denies numbness and Denies tingling Neuro Denies dizziness, Denies headache(s), Denies numbness, Denies tingling and Denies weakness Psych Denies anxiety and Denies depression Endo Denies fatigue Aller/Immun Denies wheezing Physical exam (Primary Care) Vital Signs: Last Vital Signs Temp 98.6 F 01/28/25 09:33 Pulse 45 L 01/28/25 09:33 Resp 14 01/28/25 09:33 BP 122/78 01/28/25 09:33 Pulse Ox 98 01/28/25 09:33 Oxygen Delivery Method Room Air 01/28/25 09:33 BMI result Body Mass Index 31.4 Tobacco/Smoking Status: Tobacco use Status Tobacco use date assessed 01/28/25 01/28/25 09:35 Patient Tobacco Use Status Never used Tobacco 01/28/25 09:33 e-Cigarette/Vaping Use Never Used 01/28/25 09:33 Thrive Assessment: Date of Thrive Assessment Date Thrive assessed 09/24/24 01/28/25 09:29 Currently or been in a relationship where the following occur: No concerns reported Const General: well developed; No acute distress Nutritional Appearance: well nourished Orientation/consciousness: patient oriented x3 HENMT Head: Yes normocephalic and Yes atraumatic Eyes General: appearance normal, both eyes and all related structures Pupils: Equal, round and reactive pupils present EOM: EOMs intact bilaterally Resp Effort & Inspection: normal respiratory effort Auscultation: clear to auscultation bilaterally Cardio Rate: regular rate Rhythm: regular rhythm Heart sounds: S1 normal heart sound present, S2 normal heart sound present, no gallops, no murmurs and no rubs Neuro General: patient oriented x3 and gait normal Cranial nerves: Yes Equal, round and reactive pupils present Psych Affect: normal affect Coding Level of Care Code Est Pt Level 4 (81223) Diagnoses Hypertension I10 Aortic aneurysm I71.9 Elevated liver enzymes R74.8 Screening for colon cancer Z12.11 Immunization counseling Z71.85 Assessment & Plan Assessment & Plan (1) Hypertension: Code(s): I10 - Essential (primary) hypertension Category: Medical Plan: Blood pressure is well controlled. Goal is less than 130/80 Continue current medications (2) Aortic aneurysm: Code(s): I71.9 - Aortic aneurysm of unspecified site, without rupture Category: Medical Plan: Aortic aneurysm 4.5 cm Stable Echocardiogram last year, up-to-date Continue good blood pressure control (3) Elevated liver enzymes: Code(s): R74.8 - Abnormal levels of other serum enzymes Category: Medical Plan: Improving Encouraged weight loss and good hydration (4) Screening for colon cancer: Code(s): Z12.11 - Encounter for screening for malignant neoplasm of colon Category: Medical Plan: Recent FIT test was negative UTD (5) Immunization counseling: Code(s): Z71.85 - Encounter for immunization safety counseling Category: Medical Plan: Patient declines immunizations Recommended flu shot-patient declines
[2025-01-28 09:33] VITALS: BP 122/78; PULSE 45; RESP 14; TEMP 37; O2SAT 98; BMI 31.4
--- OUTSIDE RECORDS SUMMARY | 2025-01-28 09:38 | XMS_ITS | Encounter Summary ---
Author Organization [facility] [place], Address [address] [place] [address] Phone Care Team Providers Care Production Planning Manager Name Role Phone Mike Silverman MD Primary Care Provider [phone] Encounter Details Date Type Department Care Team (Late Contact Info) Description 01/11/2023 Documentation Only [facility] [address] [place] [address] Lavelle Mcmullen DO [address] [place] [address] Social History Tobacco Use Types [...] Visit [facility] [address] [place] [address] Lavelle Mcmullen DO [address] [place] [address] documented as of this encounter Visit Diagnoses Not on filedocumented in this encounter Care Teams Production Planning Manager Relationship Specialty Start Date End Date Mike Silverman MD 10 [facility] [address] [place] [address] [phone] PCP - General Family Medicine 12/05/24 documented as of this encounter
--- OUTSIDE RECORDS SUMMARY | 2025-01-28 09:38 | XMS_ITS | Encounter Summary ---
Author Organization [facility] [place], Address [address] [place] [address] Phone Care Team Providers Care Lead Esthetician Name Role Phone Mike Silverman MD Primary Care Provider Encounter Details Date Type Department Care Team (Late Contact Info) Description 12/06/2023 Documentation Only [facility] [address] [place] [address] Lavelle Mcmullen DO [address] [place] [address] Social History Tobacco Use Types [...] Visit [facility] [address] [place] [address] Lavelle Mcmullen DO [address] [place] [address] documented as of this encounter Visit Diagnoses Not on filedocumented in this encounter Care Teams Lead Esthetician Relationship Specialty Start Date End Date Mike Silverman MD 10 [facility] [address] [place] [address] [phone] PCP - General Family Medicine 12/05/24 documented as of this encounter
--- OUTSIDE RECORDS SUMMARY | 2025-01-28 09:38 | XMS_ITS | Clinical Summary ---
Author Organization [facility], Address [address] [place] [address] [place] [address] Phone Care Team Providers Care Fruit Dumper Name Role Phone Mike Silverman MD Primary Care Provider Allergies Active Allergy Reactions Criticality Noted Date Comments Amlodipine 07/10/2018 Pt reports fast heart rate Amoxicillin Other (see comments) 09/10/2010 Medications omeprazole (PriLOSEC) [address] capsule Take 40 mg by mouth 7 Active Aspirin Buf,CaCarb-MgCar b-MgO, 81 MG tablet Take 81 mg by mouth Active atorvastatin (LIPITOR) 40 MG tablet Take 1 tablet by mouth 1 (one) time each day 8 Active aMILoride (MIDAMOR) 5 MG tabletIndication s:Acute kidney injury due to hypovolemia (HCC),Stage 3a chronic kidney disease (HCC),Toxic nephropathy,Hype rtensive disorder Take 2 tablets (10 mg total) by mouth 1 (one) time each day 180 tablet 3 5 06/07/19 26 Active lisinopril 10 MG tablet TAKE 1 TABLET BY MOUTH 1 TIME EACH DAY. 90 tablet 3 5 Active metoprolol succinate XL (TOPROL XL) 25 MG 24 hr tablet Take 1 tablet (25 mg total) by mouth 1 (one) time each day Do not crush or chew. 90 tablet 3 5 Active metoprolol succinate XL (TOPROL XL) 25 MG 24 hr tablet TAKE 1 TABLET (25 MG TOTAL) BY MOUTH DAILY DO NOT CRUSH OR CHEW 90 tablet 3 4 01/22/20 25 Discontinu ed(Reorder (does not appear on AVS)) Active Problems Problem Noted Date Diagnosed Date [...] hypertension 01/23/2020 06/07/2023 Overview (01/23/2020): dr Tim, [place] nephropathy 01/23/2020 12/06/19 24 Encounters Date Type Department Care Team Description 01/21/2025 [facility]ill [facility] [address] [place] [address] Iram Shetty MA 12/05/2024 2:30 PM EDT Office [facility] [address] [place] [address] Lavelle Mcmullen DO Stage 3a chronic kidney [...] Visit [facility] [place], [address] [place] [address] Lavelle Mcmullen, [address] [facility] [place] [address] Health Maintenance Due Date Last Done [...] Creatinine, Ur 32.5 Not Estab. mg/dL [facility] Albumin, Urine 10.6 Not Estab. ug/mL [facility] Albumin/Creatin ine Ratio 33(H) 0 - 29 mg/g creat [facility] Comment: Normal: 0 - 29 Moderately increased: 30 - 300 Severely increased: >300 11/18/2024 9:51 AM EDT 11/18/2024 Lavelle Mcmullen DO LAB URINE ORDERABLES Final Resu lt [facility] [address] [place] [address] * (ABNORMAL) Renal Function Panel (11/18/2024 9:51 AM EDT) Glucose 102(H) 70 - 99 mg/dL [facility] BUN 28(H) 8 - 27 mg/dL [facility] Creatinine 1.70(H) 0.57 - 1.00 mg/dL [facility] eGFR CKD-EPI CR 2020 32(L) >59 mL/min/1.7 3 [facility] BUN/Creatinine Ratio 16 12 - 28 [facility] Sodium 139 134 - 144 mmol/L [facility] Potassium 4.8 3.5 - 5.2 mmol/L [facility] Chloride 106 96 - 106 mmol/L [facility] Bicarbonate (CO2) 17(L) 20 - 29 mmol/L [facility] Calcium 10.0 8.7 - 10.3 mg/dL [facility] Albumin 4.1 3.8 - 4.8 g/dL [facility] Phosphorus 2.8(L) 3.0 - 4.3 mg/dL [facility] 11/18/2024 9:51 AM EDT 11/18/2024 Lavelle Mcmullen DO LAB BLOOD ORDERABLES Final Resu lt [facility] [address] [place] [address] from Last [address] [facility] Medicare Care Teams Fruit Dumper Relationship Specialty Start Date End Date Mike Silverman MD 10 [facility] [address] [place] [phone] PCP - General Family Medicine 12/05/24
--- OUTSIDE RECORDS SUMMARY | 2025-01-28 09:38 | XMS_ITS | Clinical Summary ---
Author Organization [address] [place] [address] [place] [phone] Phone Care Team Providers Care Marketing Communications Leader Name Role Phone Mike Silverman MD Primary Care Provider Medications atorvastatin (LIPITOR) 40 mg tablet Take 1 tablet (40 mg total) by mouth 1 (one) time each day. 90 tablet 1 06/04/2024 Active Active Problems Problem Noted Date Diagnosed Date Aneurysm of ascending aorta without rupture ([facility] V24) 11/29/2024 HOCM (hypertrophic obstructi ve cardiomyopathy) ([facility] V24, [facility] V28) 11/29/2024 Nonrheumatic aortic valve insufficiency 11/30/19 25 Encounters Date Type Department Care Team Description 01/08/2025 12:30 PM EDT Ancillary Procedure [facility] Cardiology [facility] [address] [facility] [address] [place] [address] Aneurysm of ascending aorta without rupture ([facility] V24); HOCM (hypertrophic obstructive cardiomyopathy) ([facility] V24, [facility] V28); Nonrheumatic aortic valve insufficiency 11/29/2024 Telephone [facility] [address] 300 [facility] [address] [place] [address] Ramiro Coburn MD from Last 3 Months Surgical History Surgery Date Site/Laterality Comments COLONOSCOPY 09/27/10 PROCEDURE: HISTORICAL COLONOSCOPY; COMMENT: hemorrhoids; repeat in ten years ESOPHAGOGASTRODUODENOSCOPY 09/27/10 PROCEDURE: [place] ESOPHAGOGASTRODUODENOSCOPY TRANSORAL DIAGNOSTIC; COMMENT: erosive esophagitis with [...] CKD (chronic kidney disease) , stage III ([facility] V24, [facility] V28) DX:CKD (chronic kidney disease), stage III (HCC); COMMENT: dr Tim, Hypernatremia DX:Hypernatremia Diabetes insipidus ([facility] V24) DX:Diabetes insipidus (HCC); COMMENT: d/t lithium use History of malignant melanoma of skin 09/10/2010 DX:History of malignant melanoma of skin; COMMENT: Malignant melanoma at age 13 abdominal wall Thoracic ascending aortic an eurysm ([facility] V24) DX:Thoracic ascending aortic aneurysm (HCC) Thyromegaly [...] EDT Aneurysm of ascending aorta without rupture ([facility] V24) HOCM (hypertrophic obstructive cardiomyopathy) (CMS/HCC [...] (01/08/2025 12:59 PM EDT) Left [facility] [place] 6.0 cm CV PACS Left [facility] [place] 6.0 cm CV PACS [place] Area Sys [...] 40 mg/dL [facility] 1 LDL Chol Calc ([facility]) 62 0 - 99 mg/dL [facility] 1 06/17/2024 9:32 AM EST 06/17/2024 Narrative [facility] 1 - 06/18/2024 1:06 AM EST Performed at: 01 - [facility] [address] [id number] Chief Sustainability Officer: Aleja Leroy MD, Phone: [phone] us Ramiro Coburn MD LAB BLOOD ORDERABLES [...] spine and left hip were obtained using [employer] Discovery W (S/N [id number]). COMPARISON: None FINDINGS: L1-L4 BMD: 0.718 g/cm2 [...] below -2.5 SD Osteoporosis Procedure Note Jaret eLonard MD - 05/30/2023 STUDY: DUAL ENERGY X-RAY ABSORPTIOMETRY / DXA REASON FOR EXAM: Female, 67 years old other(see comments) TECHNIQUE: Bone Mineral Density (BMD) measurements of the lumbar spineand left hip were obtained using [employer] ([employer]I) Discovery W (S/N [id number]). COMPARISON: None FINDINGS: L1-L4 BMD: 0.718 g/cm2 [...] Maintenance Insurance [employer] MEDICARE Care Teams Marketing Communications Leader Relationship Specialty Start Date End Date Mike Silverman MD [address] [place] [address] [place] PCP - General 01/22/24
== END 2025-01-28 10:12 | disposition home or self-care (01) ==
LOC: HO.HMCFM 08:52
PROVIDERS: PCP Family Medicine; Visit Provider Family Medicine
DX: I10 Essential (primary) hypertension (principal); I71.9 Aortic aneurysm of unspecified site, without rupture; R74.8 Abnormal levels of other serum enzymes; Z12.11 Encounter for screening for malignant neoplasm of colon; Z71.85 Encounter for immunization safety counseling

== ENCOUNTER → 2025-01-28 08:50 | Outpatient (BNVA) | payer MEDICARE, SELFPAY | PROVIDERS: PCP Family Medicine; Visit Provider Family Medicine | DX: I12.9 Hypertensive chronic kidney disease with stage 1 through stage 4 chronic kidney disease, or unspecified chronic kidney disease (principal); N18.9 Chronic kidney disease, unspecified; I71.9 Aortic aneurysm of unspecified site, without rupture; R74.8 Abnormal levels of other serum enzymes; Z71.85 Encounter for immunization safety counseling | CPT/HCPCS: 99212 ==

== ENCOUNTER 2025-04-21 10:55 | Outpatient (REF) | payer MEDICARE, SELFPAY ==
--- OUTSIDE RECORDS SUMMARY | 2025-04-21 12:38 | XMS_ITS | Encounter Summary ---
Author Organization [facility] [place], Address [address] [place] [address] Phone Care Team Providers Care Assistant Program Director Name Role Phone Mike Silverman MD Primary Care Provider [phone] Encounter Details Date Type Department Care Team (Late Contact Info) Description 01/11/2023 Documentation Only [facility] [address] [address] Lavelle Mcmullen DO [address] [facility] [place] [address] Social History Tobacco Use Types [...] Visit [facility] [address] [place] [address] Lavelle Mcmullen DO [address] [facility] [place] [address] documented as of this encounter Visit Diagnoses Not on filedocumented in this encounter Care Teams Assistant Program Director Relationship Specialty Start Date End Date Mike Silverman MD 10 [facility] [address] [place] [address] [phone] PCP - General Family Medicine 12/05/24 documented as of this encounter
--- OUTSIDE RECORDS SUMMARY | 2025-04-21 12:38 | XMS_ITS | Encounter Summary ---
Author Organization [facility] [place], Address [address] [place] [address] Phone Care Team Providers Care Cattle Sticker Name Role Phone Mike Silverman MD Primary Care Provider Encounter Details Date Type Department Care Team (Late Contact Info) Description 12/06/2023 Documentation Only [facility] [address] [place] [address] Lavelle Mcmullen DO [address] [facility] [place] [address] Social History Tobacco Use Types [...] Visit [facility] [address] [place] [address] Lavelle Mcmullen DO [address] [facility] [place] [address] documented as of this encounter Visit Diagnoses Not on filedocumented in this encounter Care Teams Cattle Sticker Relationship Specialty Start Date End Date Mike Silverman MD 10 [facility] [address] [place] [address] [phone] PCP - General Family Medicine 12/05/24 documented as of this encounter
--- OUTSIDE RECORDS SUMMARY | 2025-04-21 12:38 | XMS_ITS | Clinical Summary ---
Author Organization [facility], Address [address] [place] [address] [place] [address] Phone Care Team Providers Care Brickmason Apprentice Name Role Phone Mike Silverman MD Primary Care Provider [phone] Allergies Active Allergy Reactions Criticality Noted Date Comments Amlodipine 07/10/2018 Pt reports fast heart rate Amoxicillin Other (see comments) 09/10/2010 Medications omeprazole (PriLOSEC) [address] capsule Take 40 mg by mouth 09/09/2016 Active Aspirin Buf,CaCarb-MgCar b-MgO, 81 MG tablet Take 81 mg by mouth Active atorvastatin (LIPITOR) 40 MG tablet Take 1 tablet by mouth 1 (one) time each day 12/11/2017 Active aMILoride (MIDAMOR) 5 MG tabletIndication s:Acute kidney injury due to hypovolemia (HCC),Stage 3a chronic kidney disease (HCC),Toxic nephropathy,Hype rtensive disorder Take 2 tablets (10 mg total) by mouth 1 (one) time each day 180 tablet 3 06/07/2024 06/07/19 26 Active lisinopril 10 MG tablet TAKE 1 TABLET BY MOUTH 1 TIME EACH DAY. 90 tablet 3 10/07/2024 Active metoprolol succinate XL (TOPROL XL) 25 MG 24 hr tablet Take 1 tablet (25 mg total) by mouth 1 (one) time each day Do not crush or chew. 90 tablet 3 01/21/2025 Active Active Problems Problem Noted Date Diagnosed [...] hypertension 01/23/2020 06/07/2023 Overview (01/23/2020): dr Tim, [place] nephropathy 01/23/2020 12/06/19 24 Encounters Date Type Department Care Team Description 01/21/2025 Refill [facility] [place], [address] [place] [address] Iram Shetty MA from Last 3 Months Immunizations Immunization Administration [...] Visit [facility] [place], [address] [place] [address] Lavelle Mcmullen DO [address] [facility] [facility] [place] [address] Health Maintenance Due Date Last Done Comments Breast Cancer Screening 1955 Pneumococcal Vaccine: 50+ Ye ars (1 of 2 - PCV) 1972 Colorectal Cancer Screening: Annual FOBT 2002 Colorectal Cancer Screening: Colonoscopy 2002 Colorectal Cancer Screening: Sigmoidoscopy 2002 Influenza Vaccine (#1) 2024 Hepatitis B Vaccine Aged Out No longe r eligible based on patient's age to complete this topic Insurance Medicare Care Teams Brickmason Apprentice Relationship Specialty Start Date End Date Mike Silverman MD 10 [facility] [address] [place] [phone] PCP - General Family Medicine 12/05/24
--- OUTSIDE RECORDS SUMMARY | 2025-04-21 12:39 | XMS_ITS | Clinical Summary ---
Author Organization [address] [place] [address] Address [address] [place] [address] Phone Care Team Providers Care Power Bender Operator Name Role Phone Mike Silverman MD Primary Care Provider Medications atorvastatin (LIPITOR) 40 mg tablet TAKE 1 TABLET BY MOUTH 1 TIME EACH DAY. 90 tablet 3 02/21/2025 Active Active Problems Problem Noted Date Diagnosed Date Aneurysm of ascending aorta without rupture 11/2024 HOCM (hypertrophic obstructive cardiomyopathy) 0 11/29/2024 Nonrheumatic aortic valve insufficiency 11/30/19 25 Surgical History Surgery Date Site/Laterality Comments COLONOSCOPY 09/27/10 PROCEDURE: HISTORICAL COLONOSCOPY; COMMENT: hemorrhoids; repeat in ten years ESOPHAGOGASTRODUODENOSCOPY 09/27/10 PROCEDURE: [place] ESOPHAGOGASTRODUODENOSCOPY TRANSORAL DIAGNOSTIC; COMMENT: erosive esophagitis with nodules MOLE REMOVAL PROCEDURE: HISTORICAL MOLE (REMOVAL OF); COMMENT: Dysplastic nevus 2/14 back (moderate atypia) OTHER SURGICAL HISTORY PROCEDURE: HISTORICAL MELANOMA; COMMENT: Malignant melanoma at age 13 abdominal wall Medical History Medical History Date Comments Other specified personal his tory presenting hazards to health(V15.89) DX:Other specifie d personal history presenting hazards to health(V15.89); COMMENT: melanoma History of dysplastic nevus 06/21/2013 DX:H istory of dysplastic nevus; COMMENT: Dysplastic nevus 2/14 back (moderate atypia) CKD (chronic kidney disease) , stage III (CMS/HCC V24, CMS/HCC V28) DX:CKD (chronic kidney disease), stage III (HCC); COMMENT: dr Tim, Hypernatremia DX:Hypernatremia Diabetes insipidus (CMS/HCC V24) DX:Diabetes insipidus (HCC); COMMENT: d/t lithium use History of malignant melanoma of skin 09/10/2010 DX:History of malignant melanoma of skin; COMMENT: Malignant melanoma at age 13 abdominal wall Thoracic ascending aortic an eurysm (CMS/HCC V24) DX:Thoracic ascending aortic aneurysm (HCC) Thyromegaly [...] 01/08/2025 12:33 PM EDT Plan of Treatment Upcoming Encounters Date Type Department Care Team (Late st Contact Info) Description 04/23/2025 9:50 AM EST Office Visit [facility] [address] [facility] [address] [place] [address] Ramiro Coburn MD [address] [place] [address] [place] [address] Health Maintenance Due Date Last Done Comments Zoster Vaccines (1 of 2) 1972 Pneumococcal Vaccine: 50+ Years (1 of 1 - PCV) 08/28/2003 Colorectal Cancer Screening: Stool Based Tests (FOBT/FIT) 04/02/2022 Falls Risk Assessment 04/02/2022 Hepatitis C Screening 04/02/2022 Medicare Annual Wellness Visit 04/02/2022 Social Influencers of Health Screening 04/02/2022 Hypertension/CHF/CAD Annual BMP Blood Test 04/07/2022 Depression Screening 04/24/2024 COVID-19 Vaccine ( season) 2024 05/09/2021, 08/02/2020 Influenza Vaccine (#1) [...] Procedure Name Priority Date/Time Associated Diagnosis Comments LIPID PANEL Routine 06/17/2024 9:32 AM EST SCREENING MAMMOGRAPHY BI 2-VIEW BREAST INC CAD Routine 04/03/2023 9:55 AM EST Encounter for screening mammogram for malignant neoplasm of breast DXA BONE DENSITY STUDY 1+ SITS AXIAL SKEL Routine 03/30/2023 10:10 AM EST Chronic kidney disease, stage 3a (CMS/HCC V24, CMS/HCC V28) Pure hypercholesterolemi a, unspecified Essential (primary) hypertension Postmenopausal bleeding from Last 3 Months or Most Recently Relevant to Health Maintenance Results * Lipid panel (06/17/2024 9:32 AM EST) Cholesterol Total 164 100 - 199 mg/dL [facility] 1 Triglycerides 67 0 - 149 mg/dL [facility] 1 HDL Cholesterol 89 >39 mg/dL [facility] 1 VLDL Cholesterol Calculated 13 5 - 40 mg/dL [facility] 1 LDL Chol Calc ([facility]) 62 0 - 99 mg/dL [facility] 1 06/17/2024 9:32 AM EST 06/17/2024 Narrative [facility] 1 - 06/18/2024 1:06 AM EST Performed at: 01 - [facility] [address] [id number] Portrait Painter: Aleja Leroy MD, Phone: [phone] us Ramiro Coburn MD LAB BLOOD ORDERABLES [...] No mammographic evidence of malignancy. BI-RADS 2-benign Stephen Rowley MD IMG XR PROCEDURES Final [...] spine and left hip were obtained using [employer] Discovery W (S/N [id number]). COMPARISON: None FINDINGS: L1-L4 BMD: 0.718 g/cm2 [...] lumbar spineand left hip were obtained using [employer] Discovery W (S/N [id number]). COMPARISON: None FINDINGS: L1-L4 BMD: 0.718 g/cm2 [...] or below -2.5 SD Osteoporosis Luli Harper CAR BLOCKER IMG DXA PROCEDURES Final Res ult from Last 3 Months or Most Recently Relevant to Health Maintenance Insurance [employer] MEDICARE Care Teams Power Bender Operator Relationship Specialty Start Date End Date Mike Silverman MD [address] [place] [address] Dr Rajan [place] PCP - General 01/22/24
== END 2025-04-21 10:56 ==
LOC: HO.MAMMO 10:55
PROVIDERS: PCP Family Medicine; Visit Provider Family Medicine
DX: Z12.31 Encounter for screening mammogram for malignant neoplasm of breast (principal)
CPT/HCPCS: 77063; 77067

== ENCOUNTER → 2025-04-21 11:30 | Outpatient (BNV) | payer MEDICARE, SELFPAY | PROVIDERS: PCP Family Medicine; Visit Provider Internal Medicine | DX: Z12.31 Encounter for screening mammogram for malignant neoplasm of breast (principal) | CPT/HCPCS: 77063; 77067 ==

== ENCOUNTER 2025-04-22 09:36 | Outpatient (REF) | payer MEDICARE, SELFPAY ==
[2025-04-22 11:36] LABS: Appearance Urine Clear; Glucose Urine UA Negative (Negative); PH 6.5 (5.0-9.0); Specific Gravity - Urine <= 1.005 (1.005-1.025)
--- OUTSIDE RECORDS SUMMARY | 2025-04-22 12:24 | XMS_ITS | Encounter Summary ---
Author Organization [facility] [place], Address [address] [place] [address] Phone Care Team Providers Care Construction Ironworker Helper Name Role Phone Mike Silverman MD Primary Care Provider [phone] Encounter Details Date Type Department Care Team (Late Contact Info) Description 12/06/2023 Documentation Only [facility] [address] [place] [address] Lavelle Mcmullen DO [address] [facility] [place] [address] Social History Tobacco Use Types [...] Visit [facility] [address] [facility] [address] [address] [facility] [place] [address] Lavelle Mcmullen DO [address] [facility] [place] [address] documented as of this encounter Visit Diagnoses Not on filedocumented in this encounter Care Teams Construction Ironworker Helper Relationship Specialty Start Date End Date Mike Silverman MD 10 [facility] [address] [place] [address] [phone] PCP - General Family Medicine 12/05/24 documented as of this encounter
--- OUTSIDE RECORDS SUMMARY | 2025-04-22 12:24 | XMS_ITS | Encounter Summary ---
Author Organization [facility] [place], Address [address] [place] [address] Phone Care Team Providers Care Brand Advocate Name Role Phone Mike Silverman MD Primary Care Provider Encounter Details Date Type Department Care Team (Late Contact Info) Description 01/11/2023 Documentation Only [facility] [address] [place] [address] Lavelle Mcmullen DO [address] [facility] [place] [address] Social History Tobacco Use Types [...] Visit [facility] [address] [place] [address] Lavelle Mcmullen DO [address] [facility] [place] [address] documented as of this encounter Visit Diagnoses Not on filedocumented in this encounter Care Teams Brand Advocate Relationship Specialty Start Date End Date Mike Silverman MD 10 [facility] [address] [place] [phone] PCP - General Family Medicine 12/05/24 documented as of this encounter
--- OUTSIDE RECORDS SUMMARY | 2025-04-22 12:24 | XMS_ITS | Clinical Summary ---
Author Organization [address] [place] [address] Address [address] [place] [address] Phone Care Team Providers Care Mental Health Clinician Name Role Phone Mike Silverman MD Primary [...] repeat in ten years ESOPHAGOGASTRODUODENOSCOPY 09/27/10 PROCEDURE: TX ESOPHAGOGASTRODUODENOSCOPY TRANSORAL DIAGNOSTIC; COMMENT: erosive esophagitis with [...] Description 04/23/2025 9:50 AM EST Office Visit [facility] [address] [facility] [address] [place] [address] Ramiro Coburn MD [address] [place] [address] [place] [address] Health Maintenance Due Date Last Done Comments [...] 40 mg/dL [facility] 1 LDL Chol Calc ([facility]) 62 0 - 99 mg/dL [facility] 1 06/17/2024 9:32 AM EST 06/17/2024 Narrative [facility] 1 - 06/18/2024 1:06 AM EST Performed at: 01 - [facility] [address] [id number] Barber Apprentice: Aleja Leroy MD, Phone: [phone] us Ramiro Coburn MD LAB BLOOD ORDERABLES [...] spine and left hip were obtained using [employer] W (S/N [id number]). COMPARISON: None FINDINGS: L1-L4 BMD: 0.718 g/cm2 [...] below -2.5 SD Osteoporosis Procedure Note Jaret Leoanrd MD - 05/30/2023 STUDY: DUAL ENERGY X-RAY ABSORPTIOMETRY / DXA REASON FOR EXAM: Female, 67 years old other(see comments) TECHNIQUE: Bone Mineral Density (BMD) measurements of the lumbar spineand left hip were obtained using [employer] W (S/N [id number]). COMPARISON: None FINDINGS: L1-L4 BMD: 0.718 g/cm2 [...] or below -2.5 SD Osteoporosis Luli Harper QUALITY CONTROLLER IMG DXA PROCEDURES Final Res ult from Last 3 Months or Most Recently Relevant to Health Maintenance Insurance [employer] MED[employer]ARE Care Teams Mental Health Clinician Relationship Specialty Start Date End Date Mike Silverman MD [address] [place] [address] Dr Rajan [place] PCP - General 01/22/24
--- OUTSIDE RECORDS SUMMARY | 2025-04-22 12:24 | XMS_ITS | Clinical Summary ---
Author Organization [facility], Address [address] [place] [address] [place] [address] Phone Care Team Providers Care Production Operations Manager Name Role Phone Mike Silverman MD [...] hypertension 01/23/2020 06/07/2023 Overview (01/23/2020): dr Tim, [place] nephropathy 01/23/2020 12/06/19 24 Encounters Date Type Department Care Team Description 01/21/2025 Refill [facility], [address] [place] [address] Iram Shetty MA [...] Visit [facility], [address] [place] [address] Lavelle Mcmullen DO [address] [place] [address] Health [...] age to complete this [place] [address] Care Teams Production Operations Manager Relationship Specialty Start Date End Date Mike Silverman MD [address] [facility] [address] [place] [id number] PCP - General Family Medicine 12/05/24
[2025-04-22 12:26] LABS: Alanine Aminotransferase 24 U/L (0-31); Albumin Level 4.0 g/dL (3.5-5.0); Alkaline Phosphatase 66 U/L (39-117); Anion Gap 11 (12-20); Aspartate Amino Transferase 31 U/L (5-31); Blood Urea Nitrogen 31 mg/dL (9-16); Calcium 10.3 mg/dL (8.4-10.2); Carbon Dioxide 25 mmol/L (22-29); Chloride 110 mmol/L (96-108); Estimated Glomerular Filt Rate 30; Potassium 4.7 mmol/L (3.3-5.1); Sodium 141 mmol/L (135-145); Total Protein 6.8 g/dL (6.5-8.0)
[2025-04-22 13:06] LABS: Microalbum/Creatinine Ratio Ur 35.4 ug/mg cr (<30)
== END 2025-04-22 09:37 | disposition home or self-care (01) ==
LOC: HO.WFDLDS 09:36
PROVIDERS: Visit Provider Family Medicine
DX: Z00.00 Encounter for general adult medical examination without abnormal findings (principal); I10 Essential (primary) hypertension; R74.8 Abnormal levels of other serum enzymes
CPT/HCPCS: 36415; 80053; 81003; 82043; 82570